=== PATIENT | female | born 1945 | race Caucasian/White ===

== ENCOUNTER → 2020-06-01 08:48 | Outpatient (CLI) | payer MEDICARE, OTHER, SELFPAY ==
--- NOTE | 2020-06-01 | DI.RAD.S_ITS ---
PROCEDURE: XR HIP W PEL IF DONE RT 2V INDICATIONS: Hip pain TECHNIQUE: AP pelvis with lateral view(s) of the right hip(s). COMPARISON: None. FINDINGS: Bones: No fracture. Lumbar spondylosis and facet arthropathy. Severe right hip joint degeneration with near mrie-we-qadu appearance. There is mild left hip joint degeneration. Calcification projecting the region of the greater trochanter suggestive of calcific tendinitis. Soft tissues: The visualized bowel gas pattern is normal. No suspicious soft tissue calcifications. IMPRESSION: Severe right hip joint degeneration. Mild left hip osteoarthritis Lower lumbar spondylosis and facet disease. Dictated by: Bert Moy M.D. on 06/01/2020 at 10:36 Approved by: Bert Moy M.D. on 06/01/2020 at 10:37
[2020-06-01 10:37] LABS: Appearance Urine UA CLEAR; Bilirubin Urine UA NEGATIVE (NEGATIVE); Color Urine UA YELLOW; Glucose Urine UA NEGATIVE (Negative); Ketones Urine UA NEGATIVE (NEGATIVE); Leukocyte Esterase Urine UA TRACE (NEGATIVE); Nitrite Urine UA NEGATIVE (Negative); Occult Blood Urine UA 1+ (Negative); Protein Urine UA 1+ (Negative); Specific Gravity Urine UA >=1.030 (1.000-1.035); Urobilinogen Urine UA 0.2 E.U./dL (0.2)
[2020-06-01 10:44] LABS: Bacteria Urine Few (2-10); Culture Indicated Urine Cult Not Indicated; RBC Urine 5-10/HPF (0-5/HPF); Squamous Epithelial Cell Urine 5-10 /HPF (0-5/HPF); WBC Urine 1-5/HPF (0-5/HPF)
[2020-06-01 11:17] LABS: Alanine Aminotransferase 32 IU/L (<35); Albumin 4.4 g/dL (3.5-5.0); Albumin Globulin Ratio 1.4 (1.0-2.8); Alkaline Phosphatase 69 U/L (38-126); Aspartate Aminotransferase 29 IU/L (14-36); BUN Creatinine Ratio 24.6 (6-22); Bilirubin Total 0.5 mg/dL (0.2-1.3); Blood Urea Nitrogen 17 mg/dL (7-17); Calcium 9.6 mg/dL (8.4-10.2); Carbon Dioxide 28 mmol/L (22-32); Chloride 103 mmol/L (98-107); Cholesterol 160 mg/dL (140-199); Creatine Kinase 67 U/L (30-135); Estimated Glomerular Filt Rate > 60.0 mL/min (>60); Globulin 3.2 g/dL (1.7-4.1); Glucose 104 mg/dL (80-110); HDL Cholesterol 66 mg/dL (40-60); HEMOLYSIS < 15 (0-50); LDL Cholesterol Calculated 63 mg/dL (<100); Potassium 4.1 mmol/L (3.4-5.1); Sodium 140 mmol/L (137-145); Total Protein 7.6 g/dL (6.3-8.2); Triglycerides 157 mg/dL (35-150)
[2020-06-01 11:35] LABS: TSH w/ Reflex to FT4 1.83 uIU/mL (0.47-4.68)
[2020-06-02 08:59] LABS: Add Manual Diff / Slide Review NO; Basophils Absolute Auto 0 /uL (0-100); Basophils Percent Auto 0.6 % (0-2); Eosinophils Absolute Auto 100 /uL (0-450); Eosinophils Percent Auto 1.3 % (2-4); Hematocrit 42.1 % (36-46); Hemoglobin 14.2 g/dL (12.0-16.0); Lymphocytes Absolute Auto 2100 /uL (1100-4500); Lymphocytes Percent Auto 29.7 % (25-40); Mean Corpuscular HGB Conc 33.7 % (30-36); Mean Corpuscular Hemoglobin 31.7 PG (26-34); Mean Corpuscular Volume 94.1 fL (80-100); Monocytes Absolute Auto 600 /uL (0-900); Monocytes Percent Auto 8.4 % (3-14); Neutrophils Absolute Auto 4200 /uL (1500-7000); Platelet Count 234 X10^3/uL (150-400); Red Blood Cell Count 4.47 X10^6/uL (4.0-5.2); Red Cell Distribution Width 13.7 % (11.6-14.8)
== END ==
PROVIDERS: Referring Provider Internal Medicine; Visit Provider Internal Medicine
DX: R10.31 Right lower quadrant pain (principal); I10 Essential (primary) hypertension; M25.551 Pain in right hip
CPT/HCPCS: 36415; 73502; 80053; 80061; 81001; 82550; 84443; 85025

== ENCOUNTER 2021-01-02 18:41 | Emergency (ER) | payer MEDICARE, OTHER, SELFPAY ==
[2021-01-02] VITALS (12 sets, daily range): BP systolic 101–208; BP diastolic 56–106; PULSE 87–136; RESP 18–36; TEMP 36.3–36.4; O2SAT 91–99
--- NOTE | 2021-01-02 18:42 | DI.CT.S_ITS ---
PROCEDURE: CT HEAD/BRAIN WO CON INDICATIONS: confusion TECHNIQUE: Noncontrast 4.5 mm thick angled axial sections acquired from the foramen magnum to the vertex, with coronal and sagittal reformats. For radiation dose reduction, the following was used: automated exposure control, adjustment of mA and/or kV according to patient size. COMPARISON: None. FINDINGS: Image quality: Excellent. CSF spaces: Basal cisterns are patent. No extra-axial fluid collections. The ventricles are symmetric in size and shape. Brain: 0.8 x 0.7 x 1.3 centimeter acute parenchymal bleed noted in the anterior-inferior left temporal lobe. Extensive vasogenic edema noted in the left temporal, left occipital and left parietal lobes as well as the left deep white matter. There is mild left uncal herniation. There is mild, approximately 6-7 millimeters of ckzk-xc-madpd midline shift There is intracranial internal carotid artery atherosclerosis. Skull and face: Calvarium and visualized facial bones appear intact, without suspicious lesions. Sinuses: Visualized sinuses and mastoids are clear. IMPRESSION: 1. 0.8 x 0.7 x 1.3 centimeter acute left temporal bleed with extensive associated vasogenic edema suspicious for underlying neoplastic process. Recommend MRI of the brain with and without contrast when clinically feasible. 2. Approximately 6-7 millimeters of jgtj-yc-xygfg subfalcine herniation and mild left uncal herniation. 3. Findings telephoned to Dr. Lopez on January 02, 2021 at 8:35 p.m.. Dictated by: Keisha Abdul MD, PhD on 01/02/2021 at 20:32 Approved by: Keisha Abdul MD, PhD on 01/02/2021 at 20:39
--- NOTE | 2021-01-02 18:45 | ED_ITS ---
HPI - General Adult General Chief complaint: Altered Mental Status Stated complaint: change in mental status Time Seen by Provider: 01/02/21 18:42 History of Present Illness HPI narrative: 75-year-old woman with increasingly agitated behavior, police were called to further assess and medics were then dispatched. She was argumentative, clearly altered with non fluent and tangential speech. There were reports of a fall approximately 3 days ago and apparently behavioral changes started shortly after that fall. On arrival no medical records are available and patient is agitated and uncooperative to the point that she is sedated with ketamine. That was not adequate to move forward with any type of assessment or imaging so an additional 2 mg of Ativan are given. Related Data Home Medications Medication Instructions Recorded Confirmed Unobtainable 01/02/21 01/02/21 Allergies Allergy/AdvReac Type Severity Reaction Status Date / Time No Allergy Information Allergy Verified 01/02/21 20:56 Available Review of Systems Review of Systems ROS Unobtainable: Unobtainable due to mental status/LOC Patient History Social History Smoking Status: Former smoker Exam Narrative Exam Narrative: General: Agitated and combative. Moving all extremities HEENT: Moist mucous membranes, Neck: No JVD, supple Respiratory: Lungs are clear to auscultation, no wheezing no rales no rhonchi. Full and symmetrical air movement Cardiac: 1 sedated, Regular rate and rhythm no murmurs no bruits Abdomen: Soft, obese, nontender, good bowel tones, no flank pain Skin: Warm and dry, no rashes Neurologic: Significantly agitated with some word-finding difficulty and fluency difficulty but otherwise Grossly neurologically intact with no obvious asymmetries or abnormalities Extremities: No trauma, well perfused, chronic lower venous stasis changes Psych: Altered and agitated Initial Vital Signs Initial Vital Signs: Vital Signs Temperature 97.5 F L 01/02/21 18:35 Pulse Rate 108 H 01/02/21 18:35 Respiratory Rate 18 01/02/21 18:35 Blood Pressure 190/99 H 01/02/21 18:35 Pulse Oximetry 99 01/02/21 18:35 Course Orders Ordered: Discontinued Medications Dexamethasone (Dexamethasone 10 Mg/Ml Vial) 10 mg IV NOW ONE Stop: 01/02/21 20:41 Last Admin: 01/02/21 20:57 Dose: 10 mg Documented by: ANGELLA Levetiracetam 1,000 mg/ Sodium (Chloride) 110 mls @ 440 mls/hr IV NOW ONE Stop: 01/02/21 20:45 Last Infusion: 01/02/21 21:23 Dose: 0 mls/hr Documented by: Admin: 01/02/21 20:57 Dose: 440 mls/hr Documented by: ANGELLA Nicardipine HCl 25 mg/ Sodium (Chloride) 250 mls @ 50 mls/hr IV TITRATE JUDD; Protocol Last Titration: 01/02/21 22:08 Dose: 0 mg/hr, 0 mls/hr Documented by: Admin: 01/02/21 22:02 Dose: 5 mg/hr, 50 mls/hr Documented by: ADAN Nicardipine HCl 25 mg/ Sodium (Chloride) 250 mls @ 50 mls/hr IV TITRATE JUDD; Protocol Ketamine HCl (Ketamine 500 Mg/5 Ml Inj) 400 mg IM NOW ONE Stop: 01/02/21 18:46 Last Admin: 01/02/21 18:48 Dose: 400 mg Documented by: RODDY Lorazepam (Lorazepam 2 Mg/Ml Inj) 2 mg IV NOW ONE Stop: 01/02/21 19:52 Last Admin: 01/02/21 19:58 Dose: 2 mg Documented by: ADAN Vital Signs Vital signs: Vital Signs - 8 hr 01/02/21 21:15 01/02/21 21:30 01/02/21 21:45 Temperature Pulse Rate 88 91 H 90 Respiratory Rate 21 20 20 Blood Pressure 121/67 101/56 L 102/58 L Pulse Oximetry 93 92 91 01/02/21 22:00 Temperature 97.3 F L Pulse Rate 87 Respiratory Rate 19 Blood Pressure 103/56 L Pulse Oximetry 91 Medical Decision Making Medical Records Medical records reviewed: Yes I reviewed the patient's medical records. Lab Data Lab results reviewed: Yes I reviewed the patient's lab results. Result diagrams: 01/02/21 19:11 01/02/21 20:09 Labs: Lab Results 01/02/21 01/02/21 01/02/21 Range/Units 19:11 19:11 20:09 WBC 10.8 (4.5-11.0) X10^3/uL RBC 4.63 (4.0-5.2) X10^6/uL Hgb 15.0 (12.0-16.0) g/dL Hct 43.5 (36-46) % MCV 94.0 (80-100) fL MCH 32.4 (26-34) PG MCHC 34.5 (30-36) % RDW 13.5 (11.6-14.8) % Plt Count 281 (150-400) X10^3/uL Neut % (Auto) 54.3 (50-75) % Lymph % (Auto) 35.5 (25-40) % [place] % (Auto) 8.4 (3-14) % Eos % (Auto) 1.2 L (2-4) % Baso % (Auto) 0.6 (0-2) % Neut # (Auto) 5900 (2278-6558) /uL Lymph # (Auto) 3800 (8356-3827) /uL [place] # (Auto) 900 (0-900) /uL Eos # (Auto) 100 (0-450) /uL Baso # (Auto) 100 (0-100) /uL PT (10.1-12.7) SECONDS INR (0.9-1.3) APTT (26.4-36.2) SECONDS Sodium 142 (137-145) mmol/L Potassium 4.0 (3.4-5.1) mmol/L Chloride 106 (98-107) mmol/L Carbon Dioxide 23 (22-32) mmol/L BUN 15 (7-17) mg/dL Creatinine 0.70 (0.52-1.04) mg/dL Estimated GFR > 60.0 (>60) mL/min BUN/Creatinine Ratio 21.4 (6-22) Glucose 100 (80-110) mg/dL Lactate (0.7-2.1) mmol/L Calcium 9.5 (8.4-10.2) mg/dL Magnesium 2.5 H (1.6-2.3) mg/dL Total Bilirubin 0.2 (0.2-1.3) mg/dL AST 30 (14-36) IU/L ALT 30 (<35) IU/L Alkaline Phosphatase 71 (38-126) U/L Troponin I < 0.012 (0.01-0.034) ng/mL Total Protein 8.0 (6.3-8.2) g/dL Albumin 4.4 (3.5-5.0) g/dL Globulin 3.6 (1.7-4.1) g/dL Albumin/Globulin Ratio 1.2 (1.0-2.8) Lipase 73 (23-300) U/L SARS-CoV-2 (PCR) Negative (Negative) 01/02/21 01/02/21 Range/Units 20:09 20:09 WBC (4.5-11.0) X10^3/uL RBC (4.0-5.2) X10^6/uL Hgb (12.0-16.0) g/dL Hct (36-46) % MCV (80-100) fL MCH (26-34) PG MCHC (30-36) % RDW (11.6-14.8) % Plt Count (150-400) X10^3/uL Neut % (Auto) (50-75) % Lymph % (Auto) (25-40) % [place] % (Auto) (3-14) % Eos % (Auto) (2-4) % Baso % (Auto) (0-2) % Neut # (Auto) (5784-3007) /uL Lymph # (Auto) (0153-1398) /uL [place] # (Auto) (0-900) /uL Eos # (Auto) (0-450) /uL Baso # (Auto) (0-100) /uL PT 11.5 (10.1-12.7) SECONDS INR 1.0 (0.9-1.3) APTT 28 (26.4-36.2) SECONDS Sodium (137-145) mmol/L Potassium (3.4-5.1) mmol/L Chloride (98-107) mmol/L Carbon Dioxide (22-32) mmol/L BUN (7-17) mg/dL Creatinine (0.52-1.04) mg/dL Estimated GFR (>60) mL/min BUN/Creatinine Ratio (6-22) Glucose (80-110) mg/dL Lactate 2.9 H (0.7-2.1) mmol/L Calcium (8.4-10.2) mg/dL Magnesium (1.6-2.3) mg/dL Total Bilirubin (0.2-1.3) mg/dL AST (14-36) IU/L ALT (<35) IU/L Alkaline Phosphatase (38-126) U/L Troponin I (0.01-0.034) ng/mL Total Protein (6.3-8.2) g/dL Albumin (3.5-5.0) g/dL Globulin (1.7-4.1) g/dL Albumin/Globulin Ratio (1.0-2.8) Lipase (23-300) U/L SARS-CoV-2 (PCR) (Negative) Imaging Data CT scan - head: Radiologist's Impression: FINDINGS: Image quality: Excellent. CSF spaces: Basal cisterns are patent. No extra-axial fluid collections. The ventricles are symmetric in size and shape. Brain: 0.8 x 0.7 x 1.3 centimeter acute parenchymal bleed noted in the anterior-inferior left temporal lobe. Extensive vasogenic edema noted in the left temporal, left occipital and left parietal lobes as well as the left deep white matter. There is mild left uncal herniation. There is mild, approximately 6-7 millimeters of zjow-bi-mymjf midline shift There is intracranial internal carotid artery atherosclerosis. Skull and face: Calvarium and visualized facial bones appear intact, without suspicious lesions. Sinuses: Visualized sinuses and mastoids are clear. IMPRESSION: 1. 0.8 x 0.7 x 1.3 centimeter acute left temporal bleed with extensive associated vasogenic edema suspicious for underlying neoplastic process. Recommend MRI of the brain with and without contrast when clinically feasible. 2. Approximately 6-7 millimeters of sous-jf-rpnda subfalcine herniation and mild left uncal herniation. 3. Findings telephoned to Dr. Lopez on January 02, 2021 at 8:35 p.m.. Dictated by: Keisha Abdul MD, PhD on 01/02/2021 at 20:32 CT angiogram head and neck: Radiologist's Impression: FINDINGS: Image quality: Excellent. BRAIN: CSF spaces: Ventricles are normal in size and shape. Basal cisterns are patent. No extra-axial fluid collections. Brain: No midline shift. Small anterior left temporal bleed stable compared to prior CT scan of the head. Extensive vasogenic edema stable compared to prior CT scan. Toqx-zl-nrqjt subfalcine herniation stable. Mild left uncal herniation is stable. 4.1 x 2.8 by 4.3 centimeter peripherally enhancing mass noted in the anterior left temporal lobe highly suspicious for primary metastatic malignancy. Skull and face: Calvarium and facial bones appear intact, without suspicious lesions. Orbits appear normal. Sinuses: Sinuses and mastoids are clear. HEAD CT ANGIOGRAPHY: Anterior circulation: Intracranial internal carotid arteries are normal in flow. Atherosclerotic calcifications noted in the cavernous and clinoid segments of the internal carotid arteries bilaterally which causes mild narrowing of the vesse ls. The flow within the paired anterior cerebral arteries is normal and symmetric. The flow within the middle cerebral arteries is normal and symmetric. The anterior communicating artery is seen. No aneurysms are seen. Posterior circulation: Visualized portions of the vertebral arteries demo nstrate normal caliber, and join to form a normal appearing basilar artery. Flow within the posterior cerebral arteries is normal and symmetric. No aneurysms are seen. Dural sinuses demonstrate normal postcontrast enhancement. NECK CT ANGIOGRAPHY: Carotid system: The great vessels demonstrate a conventional anatomy as they arise from the aortic arch. The origins of the common carotid arteries appear patent. The common carotid arteries demonstrate normal caliber and courses. Atherosclerotic calcifications noted in the origins of the internal carotid arteries bilaterally which causes less than 50% stenosis of the vessels. The internal carotid arteries follow medial course project into the retropharyngeal space. Posterior circulation: The origins of the vertebral arteries both appear widely patent. The more superior extracranial portions of both vertebral arteries also de monstrate normal courses and calibers. They join to form a normal appearing basilar artery. Soft tissues: Visualized neck soft tissues demonstrate no suspicious abnormalities. Bones: No suspicious bony lesions. Visualized cervical spine appears normally aligned. IMPRESSION: 1. 4.1 x 2.8 x 4.3 centimeter peripherally enhancing mass in the left temporal lobe highly suspicious for primary or metastatic neoplasm. 2. Small anterior left temporal acute parenchymal bleed stable compared to prior CT scan of the head. 3. Xtwn-ka-vpgfd subfalcine herniation and mild left uncal herniation stable. 4. No large vessel occlusion, hemodynamically significant vascular stenosis, vas cular dissection or aneurysm. Any quantitative measurements of stenosis were performed using NASCET criteria. Dictated by: Keisha Abdul MD, PhD on 01/02/2021 at 20:42 MDM Narrative Medical decision making narrative: 75-year-old woman brought in by police after neighbors were concerned with altered mental status and report a fall 3 days ago. Patient did not want to be seen. Once in the emergency department to agitated for any further review. She was sedated with 4 per kilos of ketamine and an additional 2 mg of IV Ativan. Imaging, IV and lab work were obtained. Lab work is unremarkable and I suspect the slightly elevated lactic acid is from her agitation and struggling getting her to the emergency department in the 1st place. There is no other sign of infection. CT of the head is significantly concerning for a 0.8 x 0.7 x 1.3 cm acute left temporal bleed with extensive associated vasogenic edema suspicious for underlying neoplastic process. She also has a 6 7 mm left to right subfalcine herniation/midline shift and mild left uncal herniation When results of CT became available, patient is re-examined. She is still pleasantly sedated however she is starting to have bilateral upper extremity tremors concerning for seizure activity. 1g of Keppra is given IV. She is also given 10 mg of IV Decadron for the vasogenic edema. Images are electronically pushed to [facility] and phone call to see if beds are available for transport. Will contact the neighbors who initially made the phone call and see if there is other family or medical history that might be available. ANSHU Miller [phone] friend in [place] - message left 9pm 01/02 neighbor Ramana Bautista [phone] (has dog) [facility], Neurosurg Dr Dias recommends Neuro ICU admit. [address] Zohreh Severino, Neuro manager data center. Accepts. Recommends systolic blood pressure goal under 140. Will begin nicardipine. Will add coags to blood available in lab. Critical Care Time Critical Care Time Critical Care Time: Yes Total Critical Care Time: 33 Attestation: Critical care time is separate from other billable procedures. This critical care time includes consultation with family and other consulting doctors, review of records, and interpretation of data from labs, EKGs and imaging as well as managements of acute neurologic emergency with intracranial hemorrhage and intracranial edema at risk for herniation. Discharge Plan Departure Patient Disposition: [facility] Clinical Impression: Intraparenchymal hemorrhage of brain, Vasogenic cerebral edema, Observed seizure-like activity, Brain neoplasm Altered mental status Qualifiers: Altered mental status type: disorientation Qualified Code(s): R41.0 - Disorientation, unspecified Prescriptions: No Action Unobtainable RF: 0 Referrals: Parris Frye MD [Primary Care Provider] -
[2021-01-02] MEDS: KETAMINE 500 MG/5 ML INJ 400 MG IM (18:48)
--- NOTE | 2021-01-02 19:22 | PC.NURSE ---
Pt arrived via EMS [facility] with secretary of police support. Pt was found at home by her neighbor with altered mental status. Slurred, disorganized, and flight of idea speech. Pt was yelling profanities at staff and trying to hit and grab RN. Pt grabbing at handrails and trying to get up and leave. Pt was a safety risk to herself and others. Dr Lopez at bedside and order for Ketamine 400mg IM. Given per OCT. Pt calmed. Placed on cardiac monitoring. SPO2 monitoring. IV placed and labs drawn. placed on pt safety monitoring. H/o of fall several days ago. unknown if pt had medical attention at that time. noted to have healing laceration on R lower lip. Unk if pt on blood thinners or if there was LOC at the time of the fall. NAD and resting in bed on stretcher at this time. RR even and unlabored.
--- NOTE | 2021-01-02 19:29 | PC.NURSE ---
calm due to chemical restraint
[2021-01-02 19:33] LABS: Add Manual Diff / Slide Review NO; Basophils Absolute Auto 100 /uL (0-100); Basophils Percent Auto 0.6 % (0-2); Eosinophils Absolute Auto 100 /uL (0-450); Eosinophils Percent Auto 1.2 % (2-4); Hematocrit 43.5 % (36-46); Lymphocytes Absolute Auto 3800 /uL (1100-4500); Lymphocytes Percent Auto 35.5 % (25-40); Mean Corpuscular HGB Conc 34.5 % (30-36); Mean Corpuscular Hemoglobin 32.4 PG (26-34); Monocytes Absolute Auto 900 /uL (0-900); Monocytes Percent Auto 8.4 % (3-14); Neutrophils Absolute Auto 5900 /uL (1500-7000); Neutrophils Percent Auto 54.3 % (50-75); Platelet Count 281 X10^3/uL (150-400); Red Blood Cell Count 4.63 X10^6/uL (4.0-5.2); Red Cell Distribution Width 13.5 % (11.6-14.8); White Blood Cell Count 10.8 X10^3/uL (4.5-11.0)
--- NOTE | 2021-01-02 19:51 | DI.CT.S_ITS ---
PROCEDURE: CT ANGIO HEAD AND NECK INDICATIONS: agitation, ? stroke TECHNIQUE: After the administration of intravenous contrast, 1 mm thick sections acquired from the aortic arch through the [place]. Post-contrast 4.5 mm thick sections then re-acquired from the foramen magnum to the vertex. 3-dimensional qotpzch-rkkeffcmw-ynzppgsouo (MIP) and/or volume rendering reformats were acquired of the central intracranial vasculature and neck separately. COMPARISON: [facility], CT, CT HEAD/BRAIN WO CON, 01/02/2021, 20:17. FINDINGS: Image quality: Excellent. BRAIN: CSF spaces: Ventricles are normal in size and shape. Basal cisterns are patent. No extra-axial fluid collections. Brain: No midline shift. Small anterior left temporal bleed stable compared to prior CT scan of the head. Extensive vasogenic edema stable compared to prior CT scan. Eijp-gx-myakk subfalcine herniation stable. Mild left uncal herniation is stable. 4.1 x 2.8 by 4.3 centimeter peripherally enhancing mass noted in the anterior left temporal lobe highly suspicious for primary metastatic malignancy. Skull and face: Calvarium and facial bones appear intact, without suspicious lesions. Orbits appear normal. Sinuses: Sinuses and mastoids are clear. HEAD CT ANGIOGRAPHY: Anterior circulation: Intracranial internal carotid arteries are normal in flow. Atherosclerotic calcifications noted in the cavernous and clinoid segments of the internal carotid arteries bilaterally which causes mild narrowing of the vessels. The flow within the paired anterior cerebral arteries is normal and symmetric. The flow within the middle cerebral arteries is normal and symmetric. The anterior communicating artery is seen. No aneurysms are seen. Posterior circulation: Visualized portions of the vertebral arteries demonstrate normal caliber, and join to form a normal appearing basilar artery. Flow within the posterior cerebral arteries is normal and symmetric. No aneurysms are seen. Dural sinuses demonstrate normal postcontrast enhancement. NECK CT ANGIOGRAPHY: Carotid system: The great vessels demonstrate a conventional anatomy as they arise from the aortic arch. The origins of the common carotid arteries appear patent. The common carotid arteries demonstrate normal caliber and courses. Atherosclerotic calcifications noted in the origins of the internal carotid arteries bilaterally which causes less than 50% stenosis of the vessels. The internal carotid arteries follow medial course project into the retropharyngeal space. Posterior circulation: The origins of the vertebral arteries both appear widely patent. The more superior extracranial portions of both vertebral arteries also demonstrate normal courses and calibers. They join to form a normal appearing basilar artery. Soft tissues: Visualized neck soft tissues demonstrate no suspicious abnormalities. Bones: No suspicious bony lesions. Visualized cervical spine appears normally aligned. IMPRESSION: 1. 4.1 x 2.8 x 4.3 centimeter peripherally enhancing mass in the left temporal lobe highly suspicious for primary or metastatic neoplasm. 2. Small anterior left temporal acute parenchymal bleed stable compared to prior CT scan of the head. 3. Fqno-gr-yphva subfalcine herniation and mild left uncal herniation stable. 4. No large vessel occlusion, hemodynamically significant vascular stenosis, vascular dissection or aneurysm. Any quantitative measurements of stenosis were performed using NASCET criteria. Dictated by: Keisha Abdul MD, PhD on 01/02/2021 at 20:42 Approved by: Keisha Abdul MD, PhD on 01/02/2021 at 20:50
--- NOTE | 2021-01-02 19:57 | PC.NURSE ---
pt went to CT but exam was unable to be completed due to pt's activity
[2021-01-02] MEDS: LORazepam 2 MG/ML INJ IV (19:58)
--- NOTE | 2021-01-02 20:24 | PC.NURSE ---
pt went to ct and this time they were able to get the scans
[2021-01-02 20:31] LABS: Alanine Aminotransferase 30 IU/L (<35); Albumin 4.4 g/dL (3.5-5.0); Albumin Globulin Ratio 1.2 (1.0-2.8); Alkaline Phosphatase 71 U/L (38-126); Aspartate Aminotransferase 30 IU/L (14-36); BUN Creatinine Ratio 21.4 (6-22); Bilirubin Total 0.2 mg/dL (0.2-1.3); Blood Urea Nitrogen 15 mg/dL (7-17); Calcium 9.5 mg/dL (8.4-10.2); Carbon Dioxide 23 mmol/L (22-32); Chloride 106 mmol/L (98-107); Estimated Glomerular Filt Rate > 60.0 mL/min (>60); Globulin 3.6 g/dL (1.7-4.1); Glucose 100 mg/dL (80-110); HEMOLYSIS < 15 (0-50); Lipase 73 U/L (23-300); Magnesium 2.5 mg/dL (1.6-2.3); Sodium 142 mmol/L (137-145)
[2021-01-02 20:32] LABS: Lactate (Lactic Acid) 2.9 mmol/L (0.7-2.1)
[2021-01-02 20:43] LABS: Troponin I < 0.012 ng/mL (0.01-0.034)
[2021-01-02] MEDS: DEXAMETHASONE 10 MG/ML VIAL IV (20:57)
[2021-01-02] MEDS: levETIRAcetam 1,000 MG in SODIUM CHLORIDE 0.9% 100 ML 440 ML IV (20:57)
[2021-01-02 21:32] LABS: COVID19 - ADMIT (NP swab/PCR) Negative (Negative)
[2021-01-02 21:52] LABS: Prothrombin Time 11.5 SECONDS (10.1-12.7)
[2021-01-02 21:54] LABS: PTT Partial Thromboplastin Tim 28 SECONDS (26.4-36.2)
[2021-01-02] MEDS: NICARDIPINE 25 MG in SODIUM CHLORIDE 0.9% 240 ML 50 ML IV (22:02)
--- NOTE | 2021-01-02 22:05 | PC.NURSE ---
Patient prepped to go via [facility]; nicardipine drip prepared but not started d/t acceptable SBP (<140). Belongings with patient.
[2021-01-02 22:13] LABS: Reflexed Lactate in 2 Hours Y
--- NOTE | 2021-01-02 22:32 | PC.NURSE ---
Report given to JOSE ; patient set to transport to [facility].
[2021-01-03 14:30] LABS: Enterococcus species Not Detected (Not Detect); Listeria monocytogenes Not Detected (Not Detect)
[2021-01-03 14:31] LABS: Acinetobacter baumannii Not Detected (Not Detect); Candida albicans Not Detected (Not Detect); Candida glabrata Not Detected (Not Detect); Candida krusei Not Detected (Not Detect); Candida parapsilosis Not Detected (Not Detect); Candida tropicalis Not Detected (Not Detect); E. coli Not Detected (Not Detect); Enterobacter cloacae complex Not Detected (Not Detect); Enterobacteriaceae species Not Detected (Not Detect); Haemophilus influenzae Not Detected (Not Detect); KPC (carbapenem-resist gene) Not Detected (Not Detect); Methicillin-resistant gene Detected (Not Detect); Neisseria meningitidis Not Detected (Not Detect); Proteus species Not Detected (Not Detect); Pseudomonas aeruginosa Not Detected (Not Detect); Serratia marcescens Not Detected (Not Detect); Streptococcus agalactiae (Gr B Not Detected (Not Detect); Streptococcus pneumonia Not Detected (Not Detect); Streptococcus pyogenes (Gr A) Not Detected (Not Detect); Streptococcus species Not Detected (Not Detect)
[2021-01-03 14:32] LABS: Staphylococcus species Detected (Not Detect)
--- NOTE | 2021-04-16 14:10 | ED_ITS ---
HPI - Altered Mental Status General Chief Complaint: Altered Mental Status Stated Complaint: change in mental status Time Seen by Provider: 01/02/21 18:42 Source: EMS Mode of arrival: EMS Limitations: no limitations Related Data Home Medications Medication Instructions Recorded Confirmed apixaban 5 mg tablet (Eliquis) 5 mg PO BID 04/16/21 famotidine 20 mg tablet 20 mg PO BID 04/16/21 levetiracetam 750 mg 750 mg PO DAILY 04/16/21 tablet,extended release 24 hr metoprolol succinate 100 mg 100 mg PO DAILY 04/16/21 tablet,extended release 24 hr olanzapine 2.5 mg tablet 2.5 mg PO TID 04/16/21 Allergies Allergy/AdvReac Type Severity Reaction Status Date / Time No Allergy Information Allergy Verified 01/03/21 07:59 Available Patient History Medical History (Updated 04/16/21 @ 18:16 by Matti Haas DO) Atrial fibrillation Glioblastoma Surgical History H/O craniotomy Social History (System 01/03/21 @ 07:59 by Sharron Vazquez) household members: none Smoking Status: Former smoker Smoking Status: Former smoker alcohol intake frequency: 0-2 drinks per day Substance Use Type: does not use Exam Initial Vital Signs Initial Vital Signs: Vital Signs Temperature 97.5 F L 01/02/21 18:35 Pulse Rate 108 H 01/02/21 18:35 Respiratory Rate 18 01/02/21 18:35 Blood Pressure 190/99 H 01/02/21 18:35 Pulse Oximetry 99 01/02/21 18:35 Course Orders Ordered: Discontinued Medications Dexamethasone (Dexamethasone 10 Mg/Ml Vial) 10 mg IV NOW ONE Stop: 01/02/21 20:41 Last Admin: 01/02/21 20:57 Dose: 10 mg Documented by: ANGELLA Hydromorphone HCl (Hydromorphone 0.5 Mg Inj) 0.5 mg IV NOW ONE Stop: 04/16/21 14:03 Levetiracetam 1,000 mg/ Sodium (Chloride) 110 mls @ 440 mls/hr IV NOW ONE Stop: 01/02/21 20:45 Last Infusion: 01/02/21 21:23 Dose: 0 mls/hr Documented by: Admin: 01/02/21 20:57 Dose: 440 mls/hr Documented by: ANGELLA Nicardipine HCl 25 mg/ Sodium (Chloride) 250 mls @ 50 mls/hr IV TITRATE JUDD; Protocol Last Titration: 01/02/21 22:08 Dose: 0 mg/hr, 0 mls/hr Documented by: Admin: 01/02/21 22:02 Dose: 5 mg/hr, 50 mls/hr Documented by: ADAN Nicardipine HCl 25 mg/ Sodium (Chloride) 250 mls @ 50 mls/hr IV TITRATE JUDD; Protocol Ketamine HCl (Ketamine 500 Mg/5 Ml Inj) 400 mg IM NOW ONE Stop: 01/02/21 18:46 Last Admin: 01/02/21 18:48 Dose: 400 mg Documented by: RODDY Lorazepam (Lorazepam 2 Mg/Ml Inj) 2 mg IV NOW ONE Stop: 01/02/21 19:52 Last Admin: 01/02/21 19:58 Dose: 2 mg Documented by: ADAN Metoprolol Tartrate (Metoprolol Tartrate 5 Mg/5 Ml Inj) 5 mg IV NOW ONE Stop: 04/16/21 14:02 MDM - Altered Mental Status Lab Data Result diagrams: 01/02/21 19:11 01/02/21 20:09 Labs: Lab Results 01/02/21 01/02/21 01/02/21 Range/Units 19:11 19:11 19:30 WBC 10.8 (4.5-11.0) X10^3/uL RBC 4.63 (4.0-5.2) X10^6/uL Hgb 15.0 (12.0-16.0) g/dL Hct 43.5 (36-46) % MCV 94.0 (80-100) fL MCH 32.4 (26-34) PG MCHC 34.5 (30-36) % RDW 13.5 (11.6-14.8) % Plt Count 281 (150-400) X10^3/uL Neut % (Auto) 54.3 (50-75) % Lymph % (Auto) 35.5 (25-40) % Kimble % (Auto) 8.4 (3-14) % Eos % (Auto) 1.2 L (2-4) % Baso % (Auto) 0.6 (0-2) % Neut # (Auto) 5900 (7854-1992) /uL Lymph # (Auto) 3800 (1026-7624) /uL Kimble # (Auto) 900 (0-900) /uL Eos # (Auto) 100 (0-450) /uL Baso # (Auto) 100 (0-100) /uL PT (10.1-12.7) SECONDS INR (0.9-1.3) APTT (26.4-36.2) SECONDS Sodium (137-145) mmol/L Potassium (3.4-5.1) mmol/L Chloride (98-107) mmol/L Carbon Dioxide (22-32) mmol/L BUN (7-17) mg/dL Creatinine (0.52-1.04) mg/dL Estimated GFR (>60) mL/min BUN/Creatinine Ratio (6-22) Glucose (80-110) mg/dL Lactate (0.7-2.1) mmol/L Calcium (8.4-10.2) mg/dL Magnesium (1.6-2.3) mg/dL Total Bilirubin (0.2-1.3) mg/dL AST (14-36) IU/L ALT (<35) IU/L Alkaline Phosphatase (38-126) U/L Troponin I (0.01-0.034) ng/mL Total Protein (6.3-8.2) g/dL Albumin (3.5-5.0) g/dL Globulin (1.7-4.1) g/dL Albumin/Globulin Ratio (1.0-2.8) Lipase (23-300) U/L A. baumannii (PCR) Not detected (Not Detect) Ofelia albicans (PCR) Not detected (Not Detect) C. glabrata (PCR) Not detected (Not Detect) C. krusei (PCR) Not detected (Not Detect) C. parapsilosis (PCR) Not detected (Not Detect) C. tropicalis (PCR) Not detected (Not Detect) SARS-CoV-2 (PCR) Negative (Negative) Enterobacteriac sp PCR Not detected (Not Detect) E. cloacae complex PCR Not detected (Not Detect) Enterococcus sp PCR Not detected (Not Detect) E. coli (PCR) Not detected (Not Detect) H. influenzae (PCR) Not detected (Not Detect) Klebsiella oxytoca PCR Not detected (Not Detect) Klebsiella pneumoniae Not detected (Not Detect) List. monocytogenes PCR Not detected (Not Detect) N. meningitidis (PCR) Not detected (Not Detect) Proteus species (PCR) Not detected (Not Detect) Serratia marcescens PCR Not detected (Not Detect) Staphylococcus sp PCR Detected H (Not Detect) Staph aureus (PCR) Not detected (Not Detect) mecA-Methicil Res Gene Detected H (Not Detect) Streptococcus sp PCR Not detected (Not Detect) Group A Strep (PCR) Not detected (Not Detect) Strep agalactiae (PCR) Not detected (Not Detect) Strep pneumoniae (PCR) Not detected (Not Detect) P. aeruginosa (PCR) Not detected (Not Detect) Kavitha/B-Vanco Res Genes Not Reportable KPC-Carbap Res Gene PCR Not detected (Not Detect) 01/02/21 01/02/21 01/02/21 Range/Units 20:09 20:09 20:09 WBC (4.5-11.0) X10^3/uL RBC (4.0-5.2) X10^6/uL Hgb (12.0-16.0) g/dL Hct (36-46) % MCV (80-100) fL MCH (26-34) PG MCHC (30-36) % RDW (11.6-14.8) % Plt Count (150-400) X10^3/uL Neut % (Auto) (50-75) % Lymph % (Auto) (25-40) % [place] % (Auto) (3-14) % Eos % (Auto) (2-4) % Baso % (Auto) (0-2) % Neut # (Auto) (0888-5629) /uL Lymph # (Auto) (6586-7746) /uL Kimble # (Auto) (0-900) /uL Eos # (Auto) (0-450) /uL Baso # (Auto) (0-100) /uL PT 11.5 (10.1-12.7) SECONDS INR 1.0 (0.9-1.3) APTT 28 (26.4-36.2) SECONDS Sodium 142 (137-145) mmol/L Potassium 4.0 (3.4-5.1) mmol/L Chloride 106 (98-107) mmol/L Carbon Dioxide 23 (22-32) mmol/L BUN 15 (7-17) mg/dL Creatinine 0.70 (0.52-1.04) mg/dL Estimated GFR > 60.0 (>60) mL/min BUN/Creatinine Ratio 21.4 (6-22) Glucose 100 (80-110) mg/dL Lactate 2.9 H (0.7-2.1) mmol/L Calcium 9.5 (8.4-10.2) mg/dL Magnesium 2.5 H (1.6-2.3) mg/dL Total Bilirubin 0.2 (0.2-1.3) mg/dL AST 30 (14-36) IU/L ALT 30 (<35) IU/L Alkaline Phosphatase 71 (38-126) U/L Troponin I < 0.012 (0.01-0.034) ng/mL Total Protein 8.0 (6.3-8.2) g/dL Albumin 4.4 (3.5-5.0) g/dL Globulin 3.6 (1.7-4.1) g/dL Albumin/Globulin Ratio 1.2 (1.0-2.8) Lipase 73 (23-300) U/L A. baumannii (PCR) (Not Detect) Ofelia albicans (PCR) (Not Detect) C. glabrata (PCR) (Not Detect) C. krusei (PCR) (Not Detect) C. parapsilosis (PCR) (Not Detect) C. tropicalis (PCR) (Not Detect) SARS-CoV-2 (PCR) (Negative) Enterobacteriac sp PCR (Not Detect) E. cloacae complex PCR (Not Detect) Enterococcus sp PCR (Not Detect) E. coli (PCR) (Not Detect) H. influenzae (PCR) (Not Detect) Klebsiella oxytoca PCR (Not Detect) Klebsiella pneumoniae (Not Detect) List. monocytogenes PCR (Not Detect) N. meningitidis (PCR) (Not Detect) Proteus species (PCR) (Not Detect) Serratia marcescens PCR (Not Detect) Staphylococcus sp PCR (Not Detect) Staph aureus (PCR) (Not Detect) mecA-Methicil Res Gene (Not Detect) Streptococcus sp PCR (Not Detect) Group A Strep (PCR) (Not Detect) Strep agalactiae (PCR) (Not Detect) Strep pneumoniae (PCR) (Not Detect) P. aeruginosa (PCR) (Not Detect) Kavitha/B-Vanco Res Genes KPC-Carbap Res Gene PCR (Not Detect) Discharge Plan Departure Patient Disposition: [facility] Clinical Impression: Intraparenchymal hemorrhage of brain, Altered mental status, Vasogenic cerebral edema, Observed seizure-like activity, Brain neoplasm Prescriptions: No Action metoprolol succinate 100 mg tablet extended release 24 hr 100 mg PO DAILY RF: 0 olanzapine 2.5 mg tablet 2.5 mg PO TID RF: 0 famotidine 20 mg tablet 20 mg PO BID RF: 0 levetiracetam 750 mg tablet extended release 24 hr 750 mg PO DAILY RF: 0 Eliquis 5 mg tablet 5 mg PO BID RF: 0 Referrals: Parris Frye MD [Primary Care Provider] -
== END 2021-01-02 22:46 | disposition short-term general hospital (02) ==
PROVIDERS: Emergency Provider Emergency Medicine; PCP Internal Medicine
DX: I61.9 Nontraumatic intracerebral hemorrhage, unspecified (principal); G93.6 Cerebral edema; D49.6 Neoplasm of unspecified behavior of brain; R56.9 Unspecified convulsions; R41.0 Disorientation, unspecified; Z20.822 Contact with and (suspected) exposure to COVID-19
CPT/HCPCS: 36415; 70450; 70496; 70498; 80053; 83605; 83690; 83735; 84484; 85025; 85610; 85730; 87040; 87150; 87186; 87205; 87635; 96365; 96375; 99285; 99291; C9803; G0390; J1100; J1953; J2060

== ENCOUNTER 2021-04-16 12:39 | Inpatient (IN) | payer MEDICARE, OTHER, SELFPAY ==
[2021-04-16] VITALS (17 sets, daily range): BP systolic 107–154; BP diastolic 60–90; PULSE 84–173; RESP 16–31; TEMP 35.6–37.4; O2SAT 81–97; BMI 33.6
--- NOTE | 2021-04-16 12:40 | DI.CT.S_ITS ---
PROCEDURE: CT HEAD/BRAIN WO CON INDICATIONS: found down TECHNIQUE: Noncontrast 4.5 mm thick angled axial sections acquired from the foramen magnum to the vertex, with coronal and sagittal reformats. For radiation dose reduction, the following was used: automated exposure control, adjustment of mA and/or kV according to patient size. COMPARISON: [facility], CT, CT CERVICAL SPINE WO CON, 04/16/2021, 12:57. [facility], CR, XR HIP W PEL IF DONE RT 2V, 04/16/2021, 12:45. [facility], CR, XR CHEST 1V, 04/16/2021, 12:45. FINDINGS: Image quality: Excellent. CSF spaces: Basal cisterns are patent. No extra-axial fluid collections. There is prominent narrowing of the left lateral ventricle. Brain: Irregular density and mass effect can be seen involving the left frontal temporal region, with associated mass effect, with 5 mm midline shift. Within this region, there are areas of hyperdensity seen, as on series 2, image 13, which are suspicious for acute hemorrhage. There is cerebral volume loss for age, with resultant ventricular and sulcal prominence. There are periventricular and deep white matter chronic small vessel ischemic changes. There is intracranial internal carotid artery atherosclerosis. Skull and face: There is a low-density fluid collection seen along the lateral aspect of the right calvarium, without an underlying fracture. Remote left craniotomy change can be seen. Calvarium and visualized facial bones appear intact, without suspicious lesions. Incidental note is made of hyperostosis frontalis. This is not considered to be pathologic in a woman of this age. Sinuses: Visualized sinuses and mastoids are clear. IMPRESSION: Within the LEFT frontal temporal region, there is irregular density seen, which is largely attributed to underlying mass with edema. However, there are areas of hyperdensity seen, which are attributed to acute hemorrhage. Associated mass effect with 5 mm midline shift can be seen. There is prominent narrowing of the LEFT lateral ventricle. LEFT-sided craniotomy changes are seen. Please correlate with known patient history and pathologic results. Apparent chronic scalp hematoma seen on the RIGHT. Note: Dr. Rutherford was not available to discuss this case at the time of this dictation. Critical finding of acute intracranial hemorrhage relayed to Dr. Rutherford via ER staff, Juan David, at 12:42 p.m. [place] time on April 16, 2021. Dr. Rutherford will call back if there are any questions. Dictated by: Fausto Valera M.D. on 04/16/2021 at 12:36 Approved by: Fausto Valera M.D. on 04/16/2021 at 12:44
--- NOTE | 2021-04-16 12:40 | DI.CT.S_ITS ---
PROCEDURE: CT CERVICAL SPINE WO CON INDICATIONS: fall TECHNIQUE: Noncontrast 3 mm thick sections acquired from the skull base to the T4 level. Sagittal and coronal reformats were then constructed. For radiation dose reduction, the following was used: automated exposure control, adjustment of mA and/or kV according to patient size. COMPARISON: [facility], CT, CT HEAD/BRAIN WO CON, 04/16/2021, 12:57. [facility], CR, XR HIP W PEL IF DONE RT 2V, 04/16/2021, 12:45. [facility], CR, XR CHEST 1V, 04/16/2021, 12:45. FINDINGS: Image quality: This examination is somewhat limited by quantum mottle artifact. Bones: No fractures or dislocations. Visualized superior ribs are intact. At the C4-C5 and C5-C6 levels, there is at least moderate disc space narrowing seen. Partially bridging anterior osteophytes are seen C4 through C6. Posteriorly directed endplate osteophytes are seen at C4-C5 and C5-C6. Focal degenerative change is seen involving the C1-C2 interface anteriorly. Milder degenerative changes are seen elsewhere. Soft tissues: Prevertebral soft tissues are normal in thickness. No paravertebral hematomas. No apical pneumothoraces. IMPRESSION: No acute fractures are seen. Degenerative changes are seen, which are worst inferiorly. Dictated by: Fausto Valera M.D. on 04/16/2021 at 12:34 Approved by: Fausto Valera M.D. on 04/16/2021 at 12:35
--- NOTE | 2021-04-16 12:40 | ED_ITS ---
HPI - Altered Mental Status General Chief Complaint: Fall Stated Complaint: GLF Time Seen by Provider: 04/16/21 12:39 History of Present Illness HPI narrative: Patient 75-year-old has a history of atrial fibrillation on anticoagulation is also history of glioblastoma, she was found to have intracranial hemorrhage in December at which point she was [facility]. Lots of discussion about treatment however the patient decided not to have treatment last week. She has 2 DP always both are here at bedside now. Patient was found down this morning. Her neighbor, Yaw BRASHER, texted her last evening did not get a response, and had a welfare check this morning, she was found on the floor. S he is complaining of right hip pain which she apparently has been going on for some time. She has word salad kind of at his baseline. He Related Data Home Medications Medication Instructions Recorded Confirmed apixaban 5 mg tablet (Eliquis) 5 mg PO BID 04/16/21 famotidine 20 mg tablet 20 mg PO BID 04/16/21 levetiracetam 750 mg 750 mg PO DAILY 04/16/21 tablet,extended release 24 hr metoprolol succinate 100 mg 100 mg PO DAILY 04/16/21 tablet,extended release 24 hr olanzapine 2.5 mg tablet 2.5 mg PO TID 04/16/21 Allergies Allergy/AdvReac Type Severity Reaction Status Date / Time No Allergy Information Allergy Verified 01/03/21 07:59 Available Review of Systems Review of Systems ROS Unobtainable: Unobtainable due to medical condition Patient History Medical History (Updated 04/16/21 @ 18:16 by Matti Haas DO) Atrial fibrillation Glioblastoma Surgical History H/O craniotomy Social History (System 01/03/21 @ 07:59 by Sharron Vazquez) household members: none Smoking Status: Former smoker Exam Initial Vital Signs Initial Vital Signs: Vital Signs Temperature 96.1 F L 04/16/21 12:44 Pulse Rate 110 H 04/16/21 12:44 Respiratory Rate 20 04/16/21 12:44 Blood Pressure 134/90 04/16/21 12:44 Pulse Oximetry 95 04/16/21 12:44 GENERAL: Alert 75-year-old female able to find some HEENT: Head atraumatic,EOMI, pupils reactive, face symmetric, dry CARDIOVASCULAR: Tachycardic irregularly irregular ABDOMEN: Soft, nontender. Normoactive bowel sounds all 4 quadrants. No guarding or rebound. EXTREMITIES: Normal range of motion, no clubbing or edema. Neurovascularly intact. Right hip tenderness NEUROLOGICAL: Word salad no facial droop moving all extremities SKIN: Cool extremities, no mottling, no erythema Course Orders Ordered: ED Orders 04/16/21 11:50 Blood Culture Stat COVID19 -Nasal swab/Pre-Proc Stat Complete Blood Count AUTO DIFF Stat Comprehensive Metabolic Panel Stat Lactate (Lactic Acid) Stat NT-proBNP (BNP-Adult 18+) Stat Partial Thromboplastin Time Stat Procalcitonin Stat Prothrombin Time INR Stat Troponin & CK Cardiac Panel Stat 04/16/21 12:40 CT cervical spine wo con Stat CT head/brain wo con Stat XR chest 1V Stat XR hip w pel if done RT 2V Stat 04/16/21 12:41 EKG-12 Lead Stat 04/16/21 14:40 Urinalysis and Microscopic Stat Acetaminophen (Acetaminophen 325 Mg Tablet) 650 mg PO Q6HR PRN PRN Reason: Fever/Mild Pain (1-3) Dexamethasone (Dexamethasone 4 Mg/Ml Vial) 4 mg IV Q6HR JUDD Stop: 04/19/21 00:00 Sodium Chloride (Normal Saline 0.9%) 1,000 mls @ 100 mls/hr IV CONT JUDD Last Admin: 04/16/21 17:02 Dose: 100 mls/hr Documented by: ELISA Levetiracetam 500 mg/ Sodium (Chloride) 105 mls @ 420 mls/hr IV Q12H [facility] Metoprolol Succinate (Metoprolol Er 50 Mg Tablet) 50 mg PO BID JUDD Metoprolol Tartrate (Metoprolol Tartrate 5 Mg/5 Ml Inj) 5 mg IV Q2HR PRN PRN Reason: Heart Rate- High > 130 Ondansetron HCl (Ondansetron 4 Mg Odt) 4 mg PO Q8HR PRN PRN Reason: Nausea And Vomiting Oxycodone HCl (Oxycodone Ir 5 Mg Tablet) 5 mg PO Q6HR PRN PRN Reason: Pain, Moderate (4-6) Discontinued Medications Dexamethasone (Dexamethasone 10 Mg/Ml Vial) 10 mg IV NOW ONE Stop: 04/16/21 18:40 Hydromorphone HCl (Hydromorphone 0.5 Mg Inj) 0.5 mg IV NOW ONE Stop: 04/16/21 14:12 Last Admin: 04/16/21 14:23 Dose: 0.5 mg Documented by: ADAN Sodium Chloride (Normal Saline 0.9%) 1,000 mls @ 1,000 mls/hr IV BOLUS ONE Stop: 04/16/21 14:22 Last Infusion: 04/16/21 14:23 Dose: 0 mls/hr Documented by: Admin: 04/16/21 13:31 Dose: 1,000 mls/hr Documented by: ADAN Metoprolol Tartrate (Metoprolol Tartrate 5 Mg/5 Ml Inj) 5 mg IV NOW ONE Stop: 04/16/21 14:12 Last Admin: 04/16/21 14:23 Dose: 5 mg Documented by: ADAN Vital Signs Vital signs: Vital Signs - 8 hr 04/16/21 12:44 04/16/21 12:52 04/16/21 12:57 Temperature 96.1 F L 96.1 F L Pulse Rate 110 H 167 H 123 H Respiratory Rate 20 20 30 H Blood Pressure 134/90 134/90 Pulse Oximetry 95 95 96 04/16/21 13:00 04/16/21 13:02 04/16/21 13:24 Temperature Pulse Rate 125 H 146 H 173 H Respiratory Rate 30 H 30 H 28 H Blood Pressure 148/79 H 129/79 Pulse Oximetry 96 96 81 L 04/16/21 13:30 04/16/21 13:31 04/16/21 14:00 Temperature Pulse Rate 142 H 118 H 146 H Respiratory Rate 28 H 28 H 31 H Blood Pressure 154/77 H 138/86 Pulse Oximetry 95 97 97 04/16/21 14:30 04/16/21 15:00 04/16/21 15:01 Temperature 98.8 F 99.0 F Pulse Rate 99 H 93 H 90 Respiratory Rate 30 H 23 24 Blood Pressure 154/73 H 116/65 Pulse Oximetry 97 95 96 04/16/21 15:30 04/16/21 16:00 Temperature 99.3 F 99.3 F Pulse Rate 98 H 124 H Respiratory Rate 24 26 H Blood Pressure 125/69 138/76 Pulse Oximetry 93 95 MDM - Altered Mental Status Lab Data Attestation: I reviewed the patient's lab results. Result diagrams: 04/16/21 11:50 04/16/21 11:50 Labs: Lab Results 04/16/21 04/16/21 04/16/21 Range/Units 11:50 11:50 11:50 WBC 14.9 H (4.5-11.0) X10^3/uL RBC 5.94 H (4.0-5.2) X10^6/uL Hgb 17.8 H (12.0-16.0) g/dL Hct 55.1 H (36-46) % MCV 92.8 (80-100) fL MCH 29.9 (26-34) PG MCHC 32.2 (30-36) % RDW 15.0 H (11.6-14.8) % Plt Count 398 (150-400) X10^3/uL Neut % (Auto) 79.9 H (50-75) % Lymph % (Auto) 8.8 L (25-40) % [place] % (Auto) 11.0 (3-14) % Eos % (Auto) 0.1 L (2-4) % Baso % (Auto) 0.2 (0-2) % Neut # (Auto) 10212 H (2275-9079) /uL Lymph # (Auto) 1300 (1882-8262) /uL [place] # (Auto) 1600 H (0-900) /uL Eos # (Auto) 0 (0-450) /uL Baso # (Auto) 0 (0-100) /uL PT Cancelled INR Cancelled APTT (26.4-36.2) SECONDS Sodium (137-145) mmol/L Potassium (3.4-5.1) mmol/L Chloride (98-107) mmol/L Carbon Dioxide (22-32) mmol/L BUN (7-17) mg/dL Creatinine (0.52-1.04) mg/dL Estimated GFR (>60) mL/min BUN/Creatinine Ratio (6-22) Glucose (80-110) mg/dL Lactate (0.7-2.1) mmol/L Calcium (8.4-10.2) mg/dL Total Bilirubin (0.2-1.3) mg/dL AST (14-36) IU/L ALT (<35) IU/L Alkaline Phosphatase (38-126) U/L Total Creatine Kinase (30-135) U/L CK-MB (CK-2) (<2.37) ng/mL CK-MB (CK-2) Rel Index (1.5-5.0) % Troponin I (0.01-0.034) ng/mL NT-Pro-B Natriuret Pep Cancelled Total Protein (6.3-8.2) g/dL Albumin (3.5-5.0) g/dL Globulin (1.7-4.1) g/dL Albumin/Globulin Ratio (1.0-2.8) Procalcitonin (<0.5) ng/mL Urine Color Urine Appearance Urine pH (4.5-8.0) Ur Specific [place] (1.000-1.035) Urine Protein (Negative) Urine Glucose (UA) (Negative) g/dL Urine Ketones (NEGATIVE) Urine Occult Blood (Negative) Urine Nitrate (Negative) Urine Bilirubin (NEGATIVE) Urine Urobilinogen (0.2) E.U./dL Ur Leukocyte Esterase (NEGATIVE) Urine RBC (0-5/HPF) Urine WBC (0-5/HPF) Ur Squamous Epith Cells (0-5/HPF) Ur Transition Epith Cell (0-5/HPF) Urine Bacteria (None) Hyaline Casts (None) Urine Mucus (Negative) Ur Culture Indicated? SARS-CoV-2 (PCR) (Negative) 04/16/21 04/16/21 04/16/21 Range/Units 11:50 11:50 11:50 WBC (4.5-11.0) X10^3/uL RBC (4.0-5.2) X10^6/uL Hgb (12.0-16.0) g/dL Hct (36-46) % MCV (80-100) fL MCH (26-34) PG MCHC (30-36) % RDW (11.6-14.8) % Plt Count (150-400) X10^3/uL Neut % (Auto) (50-75) % Lymph % (Auto) (25-40) % [place] % (Auto) (3-14) % Eos % (Auto) (2-4) % Baso % (Auto) (0-2) % Neut # (Auto) (0732-2071) /uL Lymph # (Auto) (5230-2431) /uL [place] # (Auto) (0-900) /uL Eos # (Auto) (0-450) /uL Baso # (Auto) (0-100) /uL PT 12.6 INR 1.1 APTT 33 (26.4-36.2) SECONDS Sodium 140 (137-145) mmol/L Potassium 3.9 (3.4-5.1) mmol/L Chloride 102 (98-107) mmol/L Carbon Dioxide 25 (22-32) mmol/L BUN 28 H (7-17) mg/dL Creatinine 0.81 (0.52-1.04) mg/dL Estimated GFR > 60.0 (>60) mL/min BUN/Creatinine Ratio 34.6 H (6-22) Glucose 148 H (80-110) mg/dL Lactate 3.6 H (0.7-2.1) mmol/L Calcium 10.4 H (8.4-10.2) mg/dL Total Bilirubin 1.3 (0.2-1.3) mg/dL AST 87 H (14-36) IU/L ALT 47 H (<35) IU/L Alkaline Phosphatase 83 (38-126) U/L Total Creatine Kinase 1112 H (30-135) U/L CK-MB (CK-2) 11.30 H (<2.37) ng/mL CK-MB (CK-2) Rel Index 1.0 L (1.5-5.0) % Troponin I 0.045 H (0.01-0.034) ng/mL NT-Pro-B Natriuret Pep 1410 H Total Protein 8.3 H (6.3-8.2) g/dL Albumin 4.4 (3.5-5.0) g/dL Globulin 3.9 (1.7-4.1) g/dL Albumin/Globulin Ratio 1.1 (1.0-2.8) Procalcitonin 0.15 (<0.5) ng/mL Urine Color Urine Appearance Urine pH (4.5-8.0) Ur Specific [place] (1.000-1.035) Urine Protein (Negative) Urine Glucose (UA) (Negative) g/dL Urine Ketones (NEGATIVE) Urine Occult Blood (Negative) Urine Nitrate (Negative) Urine Bilirubin (NEGATIVE) Urine Urobilinogen (0.2) E.U./dL Ur Leukocyte Esterase (NEGATIVE) Urine RBC (0-5/HPF) Urine WBC (0-5/HPF) Ur Squamous Epith Cells (0-5/HPF) Ur Transition Epith Cell (0-5/HPF) Urine Bacteria (None) Hyaline Casts (None) Urine Mucus (Negative) Ur Culture Indicated? SARS-CoV-2 (PCR) (Negative) 04/16/21 04/16/21 04/16/21 Range/Units 11:50 14:40 16:00 WBC (4.5-11.0) X10^3/uL RBC (4.0-5.2) X10^6/uL Hgb (12.0-16.0) g/dL Hct (36-46) % MCV (80-100) fL MCH (26-34) PG MCHC (30-36) % RDW (11.6-14.8) % Plt Count (150-400) X10^3/uL Neut % (Auto) (50-75) % Lymph % (Auto) (25-40) % [place] % (Auto) (3-14) % Eos % (Auto) (2-4) % Baso % (Auto) (0-2) % Neut # (Auto) (0730-7109) /uL Lymph # (Auto) (7598-5629) /uL [place] # (Auto) (0-900) /uL Eos # (Auto) (0-450) /uL Baso # (Auto) (0-100) /uL PT INR APTT (26.4-36.2) SECONDS Sodium (137-145) mmol/L Potassium (3.4-5.1) mmol/L Chloride (98-107) mmol/L Carbon Dioxide (22-32) mmol/L BUN (7-17) mg/dL Creatinine (0.52-1.04) mg/dL Estimated GFR (>60) mL/min BUN/Creatinine Ratio (6-22) Glucose (80-110) mg/dL Lactate 2.5 H (0.7-2.1) mmol/L Calcium (8.4-10.2) mg/dL Total Bilirubin (0.2-1.3) mg/dL AST (14-36) IU/L ALT (<35) IU/L Alkaline Phosphatase (38-126) U/L Total Creatine Kinase (30-135) U/L CK-MB (CK-2) (<2.37) ng/mL CK-MB (CK-2) Rel Index (1.5-5.0) % Troponin I (0.01-0.034) ng/mL NT-Pro-B Natriuret Pep Total Protein (6.3-8.2) g/dL Albumin (3.5-5.0) g/dL Globulin (1.7-4.1) g/dL Albumin/Globulin Ratio (1.0-2.8) Procalcitonin (<0.5) ng/mL Urine Color Yellow Urine Appearance Clear Urine pH 5.5 (4.5-8.0) Ur Specific [place] 1.025 (1.000-1.035) Urine Protein 1+ H (Negative) Urine Glucose (UA) Trace H (Negative) g/dL Urine Ketones Trace H (NEGATIVE) Urine Occult Blood Trace-lysed (Negative) Urine Nitrate Negative (Negative) Urine Bilirubin Negative (NEGATIVE) Urine Urobilinogen 0.2 (0.2) E.U./dL Ur Leukocyte Esterase Negative (NEGATIVE) Urine RBC 0-1/hpf (0-5/HPF) Urine WBC 1-5/hpf (0-5/HPF) Ur Squamous Epith Cells 1-5 /hpf (0-5/HPF) Ur Transition Epith Cell 1-5/hpf (0-5/HPF) Urine Bacteria Occasional (0-1) (None) Hyaline Casts 5-10/lpf (None) Urine Mucus 1+ H (Negative) Ur Culture Indicated? Cult not indicated SARS-CoV-2 (PCR) Negative (Negative) Imaging Data CT scan - head: Radiologist's Impression: [employer] air images are in half: Within the left frontal temporal region, there is irregular density seen, which is large 8 attributed to underlying mass edema. However there are areas of hyperdensity seen which are attributed to acute hemorrhage. Associated mass effect with 5 mm midline shift can be seen. There is prominent narrowing of the left ventricle. Left-sided craniotomy changes are seen. Please correlate with known patient history and pathologic. Apparent chronic scalp hematoma seen on the right ECG Data Interpretation: Atrial fibrillation rate 120 MDM Narrative Medical decision making narrative: Patient was put under the wrong name initially if imaging is not showing up please look under pacs Patient is overall extremely poor historian. Patient has been given dilaudid fluids and Lopressor. She is noted to have a slightly increased CPK of 1000 likely from being on the floor. Urine is also noted to be quite dark. She is in AFib with RVR as well which improved some with fluids but she is given a dose of Lopressor as well. She complains of pain in her right hip which she is given dilaudid for. She is now resting comfortably. CT head does show intercranial swelling and bleeding mass. Patient apparently has had multiple MRIs but I do not have record of. Unclear if this is a new mass persistent or mass but certainly there is 5 mm of shift. Both DPOAs at bedside. Patient does not want life-saving interventions. They are agreeable to make hospice. Dr. Haas updated patient's symptoms which change and test results. Agrees to admission. Discharge Plan Departure Patient Disposition: Admitted as Observation Clinical Impression: Glioblastoma Admit Date/Time: 04/16/21 16:00 Admit Provider: Matti Haas
--- NOTE | 2021-04-16 12:40 | DI.RAD.S_ITS ---
PROCEDURE: XR HIP W PEL IF DONE RT 2V INDICATIONS: fall pain TECHNIQUE: AP pelvis with lateral view(s) of the right hip(s). COMPARISON: [facility], CT, CT CERVICAL SPINE WO CON, 04/16/2021, 12:57. [facility], CT, CT HEAD/BRAIN WO CON, 04/16/2021, 12:57. [facility], CR, XR CHEST 1V, 04/16/2021, 12:45. FINDINGS: Bones: No displaced fracture can be seen. No dislocation. There are patchy areas of low density seen within the right femoral head and neck. There is moderate to severe superior joint space narrowing seen of the right hip, with associated remodeling changes with subchondral sclerosis and osteophyte formation. Moderate degenerative change is seen of the contralateral left hip. Age-appropriate lower lumbar spine degenerative changes are noted. Soft tissues: Generalized soft tissue swelling can be seen surrounding the right hip. The visualized bowel gas pattern is normal. No suspicious soft tissue calcifications. IMPRESSION: No displaced fracture or dislocation can be seen. Moderate to severe right hip degenerative change. Soft tissue swelling can be seen surrounding the right hip. Patchy low density can be seen involving the right femoral head and neck. Differential diagnosis includes underlying neoplasm. When clinically appropriate, please consider a follow-up CT or MRI for further evaluation (assuming that there is no contraindication). Dictated by: Fausto Valera M.D. on 04/16/2021 at 12:45 Approved by: Fausto Valera M.D. on 04/16/2021 at 12:47
--- NOTE | 2021-04-16 12:40 | DI.RAD.S_ITS ---
PROCEDURE: XR CHEST 1V INDICATIONS: found down TECHNIQUE: One view of the chest was acquired. COMPARISON: [facility], CT, CT CERVICAL SPINE WO CON, 04/16/2021, 12:57. [facility], CT, CT HEAD/BRAIN WO CON, 04/16/2021, 12:57. [facility], CR, XR HIP W PEL IF DONE RT 2V, 04/16/2021, 12:45. FINDINGS: Surgical changes and devices: None. Lungs and pleura: On this supine examination, no large pneumothorax or large pleural effusions are seen. No focal areas of lung consolidation are seen. Low lung volumes are noted. This causes a crowded appearance to the lung markings and limits evaluation. Mediastinum: Mediastinal contours appear normal. Heart size is normal. Bones and chest wall: No suspicious bony lesions. Age-appropriate bony degenerative changes are seen. Overlying soft tissues appear unremarkable. IMPRESSION: Limited portable chest examination, without a significant cardiopulmonary abnormality identified. Dictated by: Fausto Valera M.D. on 04/16/2021 at 12:45 Approved by: Fausto Valera M.D. on 04/16/2021 at 12:45
[2021-04-16 13:10] LABS: INR 1.1 (0.9-1.3); Prothrombin Time 12.6 SECONDS (10.1-12.7)
[2021-04-16 13:12] LABS: PTT Partial Thromboplastin Tim 33 SECONDS (26.4-36.2)
[2021-04-16 13:13] LABS: Lactate (Lactic Acid) 3.6 mmol/L (0.7-2.1)
[2021-04-16 13:14] LABS: Add Manual Diff / Slide Review NO; Alanine Aminotransferase 47 IU/L (<35); Albumin 4.4 g/dL (3.5-5.0); Albumin Globulin Ratio 1.1 (1.0-2.8); Alkaline Phosphatase 83 U/L (38-126); Aspartate Aminotransferase 87 IU/L (14-36); BUN Creatinine Ratio 34.6 (6-22); Basophils Absolute Auto 0 /uL (0-100); Basophils Percent Auto 0.2 % (0-2); Bilirubin Total 1.3 mg/dL (0.2-1.3); Blood Urea Nitrogen 28 mg/dL (7-17); Calcium 10.4 mg/dL (8.4-10.2); Carbon Dioxide 25 mmol/L (22-32); Chloride 102 mmol/L (98-107); Creatine Kinase 1112 U/L (30-135); Eosinophils Absolute Auto 0 /uL (0-450); Eosinophils Percent Auto 0.1 % (2-4); Estimated Glomerular Filt Rate > 60.0 mL/min (>60); Globulin 3.9 g/dL (1.7-4.1); Glucose 148 mg/dL (80-110); HEMOLYSIS 18 (0-50); Hematocrit 55.1 % (36-46); Hemoglobin 17.8 g/dL (12.0-16.0); Lymphocytes Absolute Auto 1300 /uL (1100-4500); Lymphocytes Percent Auto 8.8 % (25-40); Mean Corpuscular HGB Conc 32.2 % (30-36); Mean Corpuscular Hemoglobin 29.9 PG (26-34); Mean Corpuscular Volume 92.8 fL (80-100); Monocytes Absolute Auto 1600 /uL (0-900); Neutrophils Absolute Auto 11900 /uL (1500-7000); Neutrophils Percent Auto 79.9 % (50-75); Platelet Count 398 X10^3/uL (150-400); Potassium 3.9 mmol/L (3.4-5.1); Red Blood Cell Count 5.94 X10^6/uL (4.0-5.2); Sodium 140 mmol/L (137-145); Total Protein 8.3 g/dL (6.3-8.2); White Blood Cell Count 14.9 X10^3/uL (4.5-11.0)
[2021-04-16 13:18] LABS: COVID19 -Nasal RAPID Negative (Negative)
[2021-04-16 13:26] LABS: NT-proBNP (BNP-Adult 18+) 1410 pg/mL (<450); Troponin I 0.045 ng/mL (0.01-0.034)
[2021-04-16 13:30] LABS: Procalcitonin 0.15 ng/mL (<0.5)
[2021-04-16] MEDS: SODIUM CHLORIDE 0.9% 1,000 ML 1000 ML IV (13:31)
[2021-04-16] MEDS: METOPROLOL TARTRATE 5 MG/5 ML INJ IV (14:23)
[2021-04-16] MEDS: HYDROMORPHONE 0.5 MG INJ IV (14:23)
[2021-04-16 14:57] LABS: Appearance Urine UA CLEAR; Bilirubin Urine UA NEGATIVE (NEGATIVE); Color Urine UA YELLOW; Glucose Urine UA TRACE g/dL (Negative); Ketones Urine UA TRACE (NEGATIVE); Leukocyte Esterase Urine UA NEGATIVE (NEGATIVE); Nitrite Urine UA NEGATIVE (Negative); Occult Blood Urine UA TRACE-LYSED (Negative); Protein Urine UA 1+ (Negative); Specific Gravity Urine UA 1.025 (1.000-1.035); Urobilinogen Urine UA 0.2 E.U./dL (0.2)
[2021-04-16 15:00] LABS: Reflexed Lactate in 2 Hours Y
[2021-04-16 15:04] LABS: Bacteria Urine Occasional (0-1); Culture Indicated Urine Cult Not Indicated; Hyaline Casts Urine 5-10/LPF; Mucus Urine 1+ (Negative); RBC Urine 0-1/HPF (0-5/HPF); Squamous Epithelial Cell Urine 1-5 /HPF (0-5/HPF); Transitional Epi Cells Urine 1-5/HPF (0-5/HPF); WBC Urine 1-5/HPF (0-5/HPF); pH Urine UA 5.5 (4.5-8.0)
[2021-04-16 16:37] LABS: Lactate 2HR (Lactic Acid Rflx) 2.5 mmol/L (0.7-2.1)
[2021-04-16] MEDS: SODIUM CHLORIDE 0.9% 1,000 ML 100 ML IV (17:02)
--- NOTE | 2021-04-16 17:27 | PC.NURSE ---
Pearl note: Bedside nursing swallow screen failed. Patient unable to swallow or cough on command, inconsistently following of cues. Dr. Haas made aware.
--- NOTE | 2021-04-16 17:46 | P.HP_ITS ---
History of Present Illness History of Present Illness Date Patient Seen: 04/16/21 Time Patient Seen: 17:46 Chief complaint: GLF Narrative: This is a 75-year-old female with a past history of glioblastoma who was brought into the emergency room by her neighbor after being found down. Patient is alert but confused, does not remember what happened. No further history is available at this time. After extensive chart review it does appear that the patient has a history of a craniotomy, and has prior images noting a left frontal temporal mass that has been worsening. She was also in the emergency room and sent to [facility] with this mass and subsequent bleeding at that time. It is unknown what occurred at Health system or what has transpired since then. Review electronic pharmacy records do show that the patient has been taking famotidine, Keppra, Ativan, metoprolol, olanzapine. In the emergency room, the patient was complaining of hip pain which is great chronic for her. Initial laboratory evaluation revealed a mild leukocytosis with WBC 14.9, elevated hemoglobin at 17.8, but the remainder of her labs were fairly unremarkable. Her lactate was mildly elevated at 2.5. She also has a mild transaminitis. CK level was 1112, troponin was mildly elevated at 0.045. ProBNP was 1410. Procalcitonin was within normal limits at 0.15. Urinalysis sh owed no evidence of infection. COVID-19 testing was negative. X-ray of her hip showed a possible right femoral hypodensity, which could be related to malignancy. Chest x-ray was read as unremarkable but has low lung volumes, and with my read there appears to be some blurring of her right hemidiaphragm. CT scan of her head showed a left frontal temporal mass, with 5 mm of midline shift and a scalp hematoma. CT of her C-spine showed no acute fractures. In the emergency room, ER provider had discussion with DPPETER who was the patient's neighbor and friend visiting from [place]. They left from the emergency room, but stated that the patient should be made comfortable with pursual of hospice. Patient was admitted under observation. Patient History Medical History (Updated 04/16/21 @ 18:16 by Matti Haas DO) Atrial fibrillation Glioblastoma Surgical History H/O craniotomy Family & Social History Family history unavailable: Yes (unable to review given patient's mental status) Social History: household members none Tobacco & Substance use: Smoking Status Former smoker alcohol intake frequency 0-2 drinks per day Substance Use Type does not use Meds Home Medications and Allergies Home Medications Medication Instructions Recorded Confirmed Type apixaban 5 mg tablet (Eliquis) 5 mg PO BID 04/16/21 History famotidine 20 mg tablet 20 mg PO BID 04/16/21 History levetiracetam 750 mg 750 mg PO DAILY 04/16/21 History tablet,extended release 24 hr metoprolol succinate 100 mg 100 mg PO DAILY 04/16/21 History tablet,extended release 24 hr olanzapine 2.5 mg tablet 2.5 mg PO TID 04/16/21 History Allergies Allergy/AdvReac Type Severity Reaction Status Date / Time No Allergy Information Allergy Verified 01/03/21 07:59 Available Review of Systems Review of Systems Narrative: All other systems reviewed with the patient and are negative unless otherwise stated. Though it should be noted that review of these symptoms is limited due to the patient's current mental status. Exam Vital Signs (past 8 hours): - 04/16/21 12:44 04/16/21 12:52 04/16/21 12:57 Temperature 96.1 F L 96.1 F L Pulse Rate 110 H 167 H 123 H Respiratory Rate 20 20 30 H Blood Pressure 134/90 134/90 Pulse Oximetry 95 95 96 04/16/21 13:00 04/16/21 13:02 04/16/21 13:24 Temperature Pulse Rate 125 H 146 H 173 H Respiratory Rate 30 H 30 H 28 H Blood Pressure 148/79 H 129/79 Pulse Oximetry 96 96 81 L 04/16/21 13:30 04/16/21 13:31 04/16/21 14:00 Temperature Pulse Rate 142 H 118 H 146 H Respiratory Rate 28 H 28 H 31 H Blood Pressure 154/77 H 138/86 Pulse Oximetry 95 97 97 04/16/21 14:30 04/16/21 15:00 04/16/21 15:01 Temperature 98.8 F 99.0 F Pulse Rate 99 H 93 H 90 Respiratory Rate 30 H 23 24 Blood Pressure 154/73 H 116/65 Pulse Oximetry 97 95 96 04/16/21 15:30 04/16/21 16:00 04/16/21 16:34 Temperature 99.3 F 99.3 F 97.0 F L Pulse Rate 98 H 124 H 84 Respiratory Rate 24 26 H 18 Blood Pressure 125/69 138/76 142/80 H Pulse Oximetry 93 95 95 Oxygen Delivery Method Room Air Oxygen Flow Rate 0 Narrative Exam Narrative: GENERAL APPEARANCE: Well developed, well nourished, but chronically ill-appearing female in no acute distress SKIN: Inspection of the skin reveals no rashes, ulcerations or petechiae. HEENT: R posterior scalp elevation, corresponds to hematoma seen on CT imaging, extraocular muscles are intact, oropharynx is clear and mucous membranes are dry, neck is supple without adenopathy. No apparent tongue bites. NECK: Supple and symmetric. There was no thyroid enlargement, and no tenderness, or masses were felt. CHEST: Normal AP diameter and normal contour without any kyphoscoliosis. LUNGS: Auscultation of the lungs revealed diminished breath sounds at bilateral lung bases, no obvious wheezing, rhonchi, or rales. CARDIOVASCULAR: Tachycardic and irregularly irregular rhythm, no murmurs. ABDOMEN: Soft, nondistended, and nontender. MUSCULOSKELETAL: There was no tenderness or effusions noted. Muscle strength was diminished in bilateral lower extremities. EXTREMITIES: No cyanosis, clubbing. There is bilateral nonpitting edema. NEUROLOGIC: Alert, not oriented, sometimes responds appropriately while others her responses are nonsensical and difficult to understand. Intermittently follows commands. Objective ECG Impression: Atrial fibrillation with rapid ventricular response, rate 120. Imaging CT scan - head: Radiologist's impression: Within the LEFT frontal temporal region, there is irregular density seen, which is largely attributed to underlying mass with edema. However, there are areas of hyperdensity seen, which are attributed to acute hemorrhage. Associated mass effect with 5 mm midline shift can be seen. There is prominent narrowing of the LEFT lateral ventricle. LEFT-sided craniotomy changes are seen. Please correlate with known patient history and pathologic results. Apparent chronic scalp hematoma seen on the RIGHT. Labs Result Diagrams: 04/16/21 11:50 04/16/21 11:50 Labs: Laboratory Results - last 24 hr 04/16/21 04/16/21 04/16/21 11:50 11:50 11:50 WBC 14.9 H RBC 5.94 H Hgb 17.8 H Hct 55.1 H MCV 92.8 MCH 29.9 MCHC 32.2 RDW 15.0 H Plt Count 398 Neut % (Auto) 79.9 H Lymph % (Auto) 8.8 L [place] % (Auto) 11.0 Eos % (Auto) 0.1 L Baso % (Auto) 0.2 Neut # (Auto) 85058 H Lymph # (Auto) 1300 [place] # (Auto) 1600 H Eos # (Auto) 0 Baso # (Auto) 0 PT Cancelled INR Cancelled APTT Sodium Potassium Chloride Carbon Dioxide BUN Creatinine Estimated GFR BUN/Creatinine Ratio Glucose Lactate Calcium Total Bilirubin AST ALT Alkaline Phosphatase Total Creatine Kinase CK-MB (CK-2) CK-MB (CK-2) Rel Index Troponin I NT-Pro-B Natriuret Pep Cancelled Total Protein Albumin Globulin Albumin/Globulin Ratio Procalcitonin Urine Color Urine Appearance Urine pH Ur Specific [place] Urine Protein Urine Glucose (UA) Urine Ketones Urine Occult Blood Urine Nitrate Urine Bilirubin Urine Urobilinogen Ur Leukocyte Esterase Urine RBC Urine WBC Ur Squamous Epith Cells Ur Transition Epith Cell Urine Bacteria Hyaline Casts Urine Mucus Ur Culture Indicated? SARS-CoV-2 (PCR) 04/16/21 04/16/21 04/16/21 11:50 11:50 11:50 WBC RBC Hgb Hct MCV MCH MCHC RDW Plt Count Neut % (Auto) Lymph % (Auto) [place] % (Auto) Eos % (Auto) Baso % (Auto) Neut # (Auto) Lymph # (Auto) [place] # (Auto) Eos # (Auto) Baso # (Auto) PT 12.6 INR 1.1 APTT 33 Sodium 140 Potassium 3.9 Chloride 102 Carbon Dioxide 25 BUN 28 H Creatinine 0.81 Estimated GFR > 60.0 BUN/Creatinine Ratio 34.6 H Glucose 148 H Lactate 3.6 H Calcium 10.4 H Total Bilirubin 1.3 AST 87 H ALT 47 H Alkaline Phosphatase 83 Total Creatine Kinase 1112 H CK-MB (CK-2) 11.30 H CK-MB (CK-2) Rel Index 1.0 L Troponin I 0.045 H NT-Pro-B Natriuret Pep 1410 H Total Protein 8.3 H Albumin 4.4 Globulin 3.9 Albumin/Globulin Ratio 1.1 Procalcitonin 0.15 Urine Color Urine Appearance Urine pH Ur Specific [place] Urine Protein Urine Glucose (UA) Urine Ketones Urine Occult Blood Urine Nitrate Urine Bilirubin Urine Urobilinogen Ur Leukocyte Esterase Urine RBC Urine WBC Ur Squamous Epith Cells Ur Transition Epith Cell Urine Bacteria Hyaline Casts Urine Mucus Ur Culture Indicated? SARS-CoV-2 (PCR) 04/16/21 04/16/21 04/16/21 11:50 14:40 16:00 WBC RBC Hgb Hct MCV MCH MCHC RDW Plt Count Neut % (Auto) Lymph % (Auto) [place] % (Auto) Eos % (Auto) Baso % (Auto) Neut # (Auto) Lymph # (Auto) [place] # (Auto) Eos # (Auto) Baso # (Auto) PT INR APTT Sodium Potassium Chloride Carbon Dioxide BUN Creatinine Estimated GFR BUN/Creatinine Ratio Glucose Lactate 2.5 H Calcium Total Bilirubin AST ALT Alkaline Phosphatase Total Creatine Kinase CK-MB (CK-2) CK-MB (CK-2) Rel Index Troponin I NT-Pro-B Natriuret Pep Total Protein Albumin Globulin Albumin/Globulin Ratio Procalcitonin Urine Color Yellow Urine Appearance Clear Urine pH 5.5 Ur Specific [place] 1.025 Urine Protein 1+ H Urine Glucose (UA) Trace H Urine Ketones Trace H Urine Occult Blood Trace-lysed Urine Nitrate Negative Urine Bilirubin Negative Urine Urobilinogen 0.2 Ur Leukocyte Esterase Negative Urine RBC 0-1/hpf Urine WBC 1-5/hpf Ur Squamous Epith Cells 1-5 /hpf Ur Transition Epith Cell 1-5/hpf Urine Bacteria Occasional (0-1) Hyaline Casts 5-10/lpf Urine Mucus 1+ H Ur Culture Indicated? Cult not indicated SARS-CoV-2 (PCR) Negative Assessment & Plan Assessment & Plan narrative: This is a 75-year-old female with a past history of glioblastoma who was brought into the emergency room by her neighbor after being found down. She was found to have what appears to be a worsening brain mass with midline shift, possible intracranial bleeding along with a scalp hematoma. Per discussions with the ER and DPOA the patient is comfort measures only at this time and plan is for hospice. 1. Glioblastoma, active, with intracranial edema and acute hemorrhage -from what has been pieced together the patient has glioblastoma and according to some imaging reports from [facility] likely had a resection at some time in the past. She appears to be on seizure medications and had been on dexamethasone. CT scan here shows what appears to be worsening mass with midline shift, 5 mm and with the mass associated edema and probable acute hemorrhage. This midline shift appears new compared to MRI from March 30. -per DPOA comfort measures, no interventions -from review appears patient on keppra, will give 500 mg IV BID for seizure preventions. -will also give decadron given vasogenic edema to see if any improvement in mental status. Currently unable to swallow. 2. Found down - suspect possible seizure given history, or falls in the setting of worsening glioblastoma. 3. Atrial fibrillation with rapid ventricular response, unknown type - try to control rate for now, for now will keep comfort measures. Unable to reach DPOA currently to further clarify if IVF wanted, medications for rate control, etc. Given initial discussions will give minimal treatments with comfort in mind. - eliquis on hold given intracranial hemorrhage. 4. Elevated troponin - may be in setting of possible seizure, will continue to follow for now given unclear goals of care. 5. Rhabdomyolysis, acute, present on admission - continue IV fluids, pending goals of care discussions. 6. Leukocytosis, - suspect secondary to dehydration, maybe with aspiration pneumonia, may be from possible seizure. Continue to monitor for fever or signs of infection. Code: DNR, surrogate neighbor Hans and friend Eliane from [place], both DPOA. Will continue to try and reach out for contact. DVT: hold given active bleeding. Dispo: admit under observation, probable discharge on hospice. I have utilized all available immediate resources to obtain, update, or review t he patient's current medications. Time Spent With Patient Critical Care time: I spent a total of [] minutes of critical care time on this patient's care today; this time is exclusive of procedural time. Quality MIPS - Admit I confirm the patient?s Advance Care Plan is present, Code status is documented, Surrogate decision maker is in patient?s record [If Yes, STOP here]: Yes
[2021-04-16] MEDS: DEXAMETHASONE 10 MG/ML VIAL IV (19:19)
[2021-04-16] MEDS: levETIRAcetam 500 MG in SODIUM CHLORIDE 0.9% 100 ML 420 ML IV (19:19)
[2021-04-17] VITALS (13 sets, daily range): BP systolic 121–143; BP diastolic 71–81; PULSE 73–103; RESP 16–20; TEMP 36.1–36.8; O2SAT 91–96
[2021-04-17] MEDS: DEXAMETHASONE 4 MG/ML VIAL IV ×5 (01:29→23:37)
[2021-04-17] MEDS: HYDROMORPHONE 0.5 MG INJ IV ×4 (01:42→17:55)
[2021-04-17] MEDS: SODIUM CHLORIDE 0.9% 1,000 ML 100 ML IV ×2 (02:27→13:27)
[2021-04-17] MEDS: levETIRAcetam 500 MG in SODIUM CHLORIDE 0.9% 100 ML 400 ML IV (07:00)
--- NOTE | 2021-04-17 08:23 | PT-IP ANOTE ---
PT speaks with nursing after noting that pt dx with glioblastoma and has a hospice order. Nsg recommends d/c PT and PT in agreement.
--- NOTE | 2021-04-17 08:26 | OT.IPNOTE ---
OT order received, chart reviewed. Pt with glioblastoma and hospice order. Per nursing, pt is not appropriate for therapy at this time and requested that therapy discharge the order. Please reorder if pt becomes appropriate for therapy.
--- NOTE | 2021-04-17 10:59 | PC.NURSE ---
Addendum entered by Shanna Doran R.N. 04/17/21 11:35: Per ST patient is unable to sit up beyond 30 degrees due to pain to hip; NPO will continue until tomorrow morning when speech will re-evaluate Original Note: Orientation: Pt difficult to arouse this morning, confused, expressive aphasia, A&O X 1, says that she is in [place], recognizes friend's name, Kianna, anxious; partially consolable Severe Pain: pain to Left hip, IV dilaudid Skin: repositioned at 1100 due to immobility to prevent skin breakdown; skin intact, powder in folds Safety: bed alarm active
--- NOTE | 2021-04-17 12:20 | SLP.IPNOTE ---
[employer]PER[employer]OR [employer] Elvia attempted to assess pt at 11:00 this morning. Pt presents with irregular speech patterns involving moments of dysfluency and the inability to form complete, coherent sentences at that time. Pt followed a few simple verbal commands. [employer] informally observed overall oral weakness in tongue and jaw movement. Laryngeal palpation was attempted as well with noted reduced movement of the structures. SUPERVISOR [employer] began to raise the pt's bed to attempt PO trials with pt until she reported that she was uncomfortable and experiencing pain. Due to pt's inability to sit upright, PO trials were not administered for pt safety. [employer]PER[employer] team to follow and reassess to determine safest diet for the pt upon discharge. SUPERVISOR [employer] left room at 11:20.
--- NOTE | 2021-04-17 14:30 | PM.PN.1 ---
Subjective Subjective Date Patient Seen: 04/17/21 Time Patient Seen: 14:30 Interval history: 75 year old female with glioblastoma admitted after being found down. Somewhat improved mental status today, though still with word salad. Failed speech eval today, remains NPO. Discussed with friend from [place] and ANSHU, goal is to return home hopefully to continue eating and have some wine. Discussed may not be possible but will continue steroids to see if she is able to swallow given some improvement thus far. Speech non-sensical, unable to assess her current comfort subjectively, but appears comfortable. Exam Vital Signs (past 8 hours): - 04/17/21 07:00 04/17/21 09:15 04/17/21 09:27 Temperature 98.0 F Pulse Rate 73 Respiratory Rate 17 Blood Pressure 125/75 Pulse Oximetry 94 91 94 04/17/21 11:00 04/17/21 13:38 04/17/21 14:03 Temperature 98.1 F Pulse Rate 82 Respiratory Rate 17 Blood Pressure 133/71 Pulse Oximetry 94 94 94 Oxygen Delivery Method Room Air Oxygen Flow Rate 0 Narrative Exam Narrative: GENERAL APPEARANCE: Well developed, well nourished, but chronically ill-appearing female in no acute distress SKIN: Inspection of the skin reveals no rashes, ulcerations or petechiae. HEENT:? R posterior scalp elevation, corresponds to hematoma seen on CT imaging, extraocular muscles are intact, oropharynx is clear and mucous membranes are moist, neck is supple without adenopathy.? No apparent tongue bites. NECK: Supple and symmetric. There was no thyroid enlargement, and no tenderness, or masses were felt. CHEST: Normal AP diameter and normal contour without any kyphoscoliosis. LUNGS: Auscultation of the lungs revealed diminished breath sounds at bilateral lung bases, no obvious wheezing, rhonchi, or rales. CARDIOVASCULAR:? Tachycardic and irregularly irregular rhythm, no murmurs. ABDOMEN: Soft, nondistended, and nontender. MUSCULOSKELETAL: significant L hip tenderness, no joint effusions noted.? Muscle strength was diminished in bilateral lower extremities. EXTREMITIES: No cyanosis, clubbing.? There is bilateral nonpitting edema in her lower extremities. NEUROLOGIC:? Alert, not oriented, sometimes responds appropriately while others her responses are nonsensical and difficult to understand.? Intermittently follows commands. Objective Labs Result Diagrams: 04/16/21 11:50 04/16/21 11:50 Labs: Laboratory Results - last 24 hr 04/16/21 04/16/21 14:40 16:00 Lactate 2.5 H Urine Color Yellow Urine Appearance Clear Urine pH 5.5 Ur Specific [place] 1.025 Urine Protein 1+ H Urine Glucose (UA) Trace H Urine Ketones Trace H Urine Occult Blood Trace-lysed Urine Nitrate Negative Urine Bilirubin Negative Urine Urobilinogen 0.2 Ur Leukocyte Esterase Negative Urine RBC 0-1/hpf Urine WBC 1-5/hpf Ur Squamous Epith Cells 1-5 /hpf Ur Transition Epith Cell 1-5/hpf Urine Bacteria Occasional (0-1) Hyaline Casts 5-10/lpf Urine Mucus 1+ H Ur Culture Indicated? Cult not indicated PFSH Medical History (Updated 04/16/21 @ 18:16 by Matti Haas DO) Atrial fibrillation Glioblastoma Surgical History H/O craniotomy Social History (System 01/03/21 @ 07:59 by Sharron Vazquez) household members: none Smoking Status: Former smoker Assessment & Plan Assessment & Plan narrative: This is a 75-year-old female with a past history of glioblastoma who was brought into the emergency room by her neighbor after being found down.? She was found to have what appears to be a worsening brain mass with midline shift, possible intracranial bleeding along with a scalp hematoma.? Per discussions with the ER and DPOA the patient is comfort measures only at this time and plan is for hospice. 1. Glioblastoma, active, with intracranial edema and acute hemorrhage ?-from what has been pieced together the patient has glioblastoma and according to some imaging reports from [facility] and had a resection in the past.? She appears to be on seizure medications and had been on dexamethasone.? CT scan here shows what appears to be worsening mass with midline shift, 5 mm and with the mass associated edema and probable acute hemorrhage.? This midline shift appears new compared to MRI from March 30. -per DPOA comfort measures, no aggressive interventions but goals is for patient to return home on hospice, ideally with the ability to eat. -from review appears patient on keppra, will give 500 mg IV BID for seizure preventions. Continue for now. If able to tolerate oral intake restart home 750 mg daily. -will also give decadron given vasogenic edema to see if any improvement in swallowing, her mental status is somewhat improved today. Currently unable to swallow. -continue speech therapy. 2. Found down ?- suspect possible seizure given history, or falls in the setting of worsening glioblastoma. 3. Atrial fibrillation with rapid ventricular response, unknown type ?- try to control rate for now, for now will keep comfort measures. Give minimal treatments with comfort in mind. ?- eliquis on hold given intracranial hemorrhage. 4. Elevated troponin ?- may be in setting of possible seizure, will continue to follow for now given unclear goals of care. Peak 0.045. Please note it appears patient's name was shifted and some of her admission labs are not in the chart. Given goals of care no further evaluation necessary. 5. Rhabdomyolysis, acute, present on admission ?- continue IV fluids for now given rhabdomyolysis, if discharged home or unable to swallow tomorrow consider stopping treatment. 6. Leukocytosis, ?- suspect secondary to dehydration, maybe with aspiration pneumonia, may be from possible seizure. Continue to monitor for fever or signs of infection. No further labs necessary. Code: DNR, surrogate neighbor Hans and friend Eliane from [place], both DPOA. DVT: hold given active bleeding. Dispo: changed to inpatient, plan for discharge home on hospice. Timing in the next few days, likely 2. Will see if she is able to eat with continued steroids. Time Spent With Patient Critical Care time: I spent a total of [] minutes of critical care time on this patient's care today; this time is exclusive of procedural time.
--- NOTE | 2021-04-17 14:56 | CM.DANOTE ---
Addendum entered by Berenice Gonzales R.N. 04/17/21 15:34: Dr. Haas updated friend/POA, Eliane. [facility] a message with [facility] as well. Eliane is planning on meeting with Hans, other POA/neighbor, this afternoon to set up home caregiver. They have someone in mind, she is a private caregiver named Mandy Knowles. She also has a network of other caregivers as well. Will meet with her again tomorrow to discuss outcome. Original Note: DCP: Case received, EMR reviewed and met with patient. Introduced self and role. Initially, met with patient, but unable to obtain accurate information secondary to her cognitive status. Friend (ANSHU), came in, and was able to complete DCP assessment based upon information that she had given. Patient is a 75 year old female who admitted yesterday afternoon to the care of the hospitalist team. PCP: Dr. Parris Frye. Payer: Medicare/OOgave. Patient came to the hospital via ambulance secondary to a fall that occurred at home. Patient was noted to be in a-fib with RVR, but also has history of stage 4 glioblastoma. He is not undergoing any treatment per her choice, and hospice orders have been placed Attempted to speak to patient. She was not cognitive, in the fact that she didn't answer questions, such as where she came from, or if she lived alone, work salad. It is noted that she lives here in [place], and has friends, Kianna Luna, who is DPOA, and ANSHU Tompkins. Was able to meet with Eliane in patient's room. She indicated, Laine is no longer POA, but neighbor, Hans, who is neighbor, is other POA. Hans's phone number is: [phone]. Eliane lives in [place], but plans on being here for several days. She indicated and confirmed that patient lives alone, uses a walker. Stated that she had fallen in her home, her neighbor had found her. She mentioned that patient used to have caregivers in the home, but decided that she did not need them. She indicated, they do have a caregiver in mind that could stay with her, for patient will need caregiving in the home ladies' locker room attendant upon discharge. Briefly mentioned hospice, and asked hospitalist to go into the room and discuss with her. Kianna indicated, she would do better at home, skilled rehab wouldn't be good for her. [facility] Updated Cody about the referral, she is aware. Patient is awake, pleasantly confused. Let her know that this family caseworker would update her after speaking to POA. P: DCP to continue to follow. The plan is for patient to go home with hospice services. Will need to ensure that patient has caregivers in place before she goes home. Berenice Gonzales RN/Mixing Technician
--- NOTE | 2021-04-17 18:04 | PC.NURSE ---
pt awake, word salad. Some words/sentences one can understand. pt does not attempt to move in bed. pt does follow directions. Turned to left side and pt stated, that's enough. BLE edema, HR irregular, rate 100. urine in maldonado brown color.
[2021-04-17] MEDS: levETIRAcetam 500 MG in SODIUM CHLORIDE 0.9% 100 ML 420 ML IV (18:47)
[2021-04-18] VITALS (16 sets, daily range): BP systolic 125–152; BP diastolic 66–85; PULSE 63–96; RESP 16–20; TEMP 36.2–37; O2SAT 94–98
[2021-04-18] MEDS: SODIUM CHLORIDE 0.9% 1,000 ML 75 ML IV ×2 (02:13→16:36)
[2021-04-18] MEDS: DEXAMETHASONE 4 MG/ML VIAL IV ×3 (05:29→18:12)
[2021-04-18] MEDS: levETIRAcetam 500 MG in SODIUM CHLORIDE 0.9% 100 ML 420 ML IV ×2 (06:11→18:18)
[2021-04-18] MEDS: METOPROLOL ER 50 MG TABLET PO ×2 (09:57→20:03)
--- NOTE | 2021-04-18 10:29 | ST.IPIE ---
Visit Care Team Role Provider Type Parris Frye MD Primary Care Provider Physician Specialty: Internal Medicine Address: [address] [place] [address], [id number] Email: [email or web address] Madeleine Rutherford DO Emergency Provider Physician Referring Provider Specialty: Emergency Medicine Address: [address] [place] [address], [address] Email: [email or web address] Matti Haas DO Admit Provider Physician Attending Provider Specialty: Internal Medicine Address: [address] [place] [address], [address] Email: [email or web address] Past Medical History (Last Updated 04/16/21 @ 18:16 by Matti Haas DO) Atrial fibrillation (Medical) Glioblastoma (Medical) H/O craniotomy (Medical) ST IP Initial Evaluation Report PIGMENT PUSHER Clinical Swallow Evaluation Start: 04/18/21 10:07 Freq: Status: Active Protocol: Document 04/18/21 10:08 KATIE (Rec: 04/18/21 10:29 KATIE [id number]) Clinical Swallow Evaluation Session Time Visit Start Time 09:05 Visit Stop Time 09:30 Total Visit Minutes [address] Matti Haas Reason for Referral Stroke Protocol Setting Assessment Location Acute Care Visit Type Note Type Initial evaluation Next Note Type Next Note Type Treatment Note Patient Information Identification Type Name,ID Card History The pt is a 75-year-old female with a past history of glioblastoma who was brought into the emergency room by her neighbor after being found down.? She was found to have what appears to be a worsening brain mass with midline shift , possible intracranial bleeding along with a scalp hematoma.? Per discussions with the ER and DPOA the patient is comfort measures only at this time and plan is for hospice. The pt failed nursing bedside evaluation and was made NPO pending PIGMENT PUSHER swallow eval, which was attempted yesterday, but pt was unable to participate. Subjective Observations The pt was asleep, lying on her back upon PIGMENT PUSHER's arrival. She aroused somewhat to verbal prompts, moreso when HOB was raised. The pt attempted to verbally communicate and was quite verbose; unfortunately, only the initial 1 or 2 words of sentences were intelligible . This improved mildly over the course of the session, seemingly as the pt became more awake and alert, and this PIGMENT PUSHER was able to understand up to ~4 words at at time, yet not enough to understand complete messages. A communication board was reviewed with NSG and left in the room, but pt's ability to use was not evaluated d/t time constraints. Will reattempt speech/language evaluation as able. Reported by Patient Current Diet Nothing by mouth Baseline Feeding Method Needs some assistance Patient Questionnaire No Objective Assessment Mental Status Alert,Responsive,Cooperative, Confused Oral Integrity WFL Dentition Missing teeth Lip Function Mild impairment Observation of Lips at Rest Symmetrical Pucker Reduced strength Tongue Function Mild impairment Observations of Tongue at Rest Involuntary movement(s) Tongue Protrusion Involuntary movement(s), Reduced strength Jaw Opening Within normal limits Jaw Closing Within normal limits Observations of Hard/Soft Palate Reduced strength/ROM of soft palate elevation Nasality Within normal limits Phonation Within normal limits Respiratory Sufficiency Within normal limits Comment The pt was unable to follow directions sufficiently to participate in oral peripheral exam. The pt appears to have some molars missing, although visualization of the oral cavity was limited. Mild lingual tremor was observed upon protrusion, possibly from generalized weakness. Initially she exhibited slowed response to spoon and cup presentations, with limited labial seal; however, this improved to WFL as the pt became more awake and alert, and she did self-feed from spoon and cup with hand-over- hand assistance. Pt adequately masticated diced peaches, and exhibited no abnormal oral residue or pocketing. Hyolaryngeal elevation/ excursion was WFL via palaption. Pt was unable to perform volitional swallow. Food and Liquid Trials Position During Assessment Upright (90 degrees) Liquids Trialed Thin,[place] Solids Trialed Puree,Dysphagia Mechanical Administration Type Tea spoon,Cup single sip, Controlled cup sip,Cup consecutive sips,Needs some assistance Oral Impairment Mildly impaired Oral Phase Comments Pt exhibited delayed or absent swallow trigger with initial tsp trials of thin liquid. Swallow trigger became more timely over the course of trials. Pharyngeal Impairment Moderately impaired Pharyngeal Phase Comments Pt exhibited strong delayed cough x3 with tsp (PIGMENT PUSHER administered) and cup sips ( self-administered) of thin liquid, indicating possibly delayed pharyngeal clearance and reduced airway protection. No overt s/sx of aspiration were observed with NTL or pureed and dysphagia mechanical textures. Voice remained clear throughout. Comment The pt demonstrated adequate endurance with limited trials. Given generalized weakness and confusion, she may fatigue over the course of a meal. Requires supervision. Findings Swallowing Function Oropharyngeal phase dysphagia Severity of Swallow Impairment Mildly-moderately impaired Contributing Factors to Swallow Reduced alertness or attention Impairment ,Difficulty following directions,Reduced oral strength/coordination/ sensation,Delayed swallow initiation,Impaired airway protection Prognosis Fair Based on Cognitive status,Age, Comorbidities Impact on Safety and Functioning Risk for aspiration Recommendations Instrumental Assessment No Swallowing Treatment Yes Frequency As appropriate within comfort care measures Recommended Solids Dysphagia Mechanical Recommended Liquids [place] Safety Precautions/Swallowing Supervision needed for all Recommendations meals,Feed only when alert, Reduce distractions,Remain upright (90 degrees) during all oral intake,Small bites and sips when eating,Slow rate ; swallow between bites,Set-up assistance,Strict oral care after intake,Check for pocketing Medication Recommendations Crushed in Carrier Discharge Recommendations Home with Hospice Education Patient/Caregiver Education Described results of evaluation,Patient expressed understanding of evaluation, Family/caregivers require further education/training Goals Short-term Goals 1. Ongoing assessment of swallow safety and communication skills. 2. Caregiver training for swallow safety and alternative communication strategies. Long-term Goals 1. The pt will tolerate least restrictive diet to meet her nutrition and hydration needs. 2. The pt will demonstrate ability to communicate basic wants/needs with family and medical team to participate in ADLs and medical decisions.
--- NOTE | 2021-04-18 11:53 | P.PN_ITS ---
Subjective Subjective Date Patient Seen: 04/18/21 Time Patient Seen: 08:00 Interval history: Today she is working with speech and swallow therapy. She is not intelligible, with word salad produced and some slight confusion as well, but does follow commands. Exam Vital Signs (past 8 hours): - 04/18/21 04:00 04/18/21 07:34 04/18/21 09:00 Temperature 97.1 F L 98.2 F Pulse Rate 73 67 Respiratory Rate 18 18 Blood Pressure 135/80 125/77 Pulse Oximetry 98 98 97 04/18/21 09:57 04/18/21 11:20 Temperature Pulse Rate 67 63 Respiratory Rate Blood Pressure 125/77 129/68 Pulse Oximetry Oxygen Delivery Method Room Air Oxygen Flow Rate 0 Narrative Exam Narrative: GENERAL APPEARANCE: chronically ill-appearing female in no acute distress HEENT: R posterior scalp elevation, corresponds to hematoma seen on CT imaging, extraocular muscles are intact, oropharynx is clear and mucous membranes are moist, neck is supple without adenopathy. LUNGS: Auscultation of the lungs revealed diminished breath sounds at bilateral lung bases, no obvious wheezing, rhonchi, or rales. CARDIOVASCULAR: Tachycardic and irregularly irregular rhythm, no murmurs. ABDOMEN: Soft, nondistended, and nontender. MUSCULOSKELETAL: significant L hip tenderness, no joint effusions noted. Muscle strength was diminished in bilateral lower extremities. EXTREMITIES: No cyanosis, clubbing. There is bilateral nonpitting edema in her lower extremities. NEUROLOGIC: Alert, not orientedresponses are nonsensical and difficult to understand. Intermittently follows commands. Objective Labs Result Diagrams: 04/16/21 11:50 04/16/21 11:50 [facility] Medical History (Updated 04/16/21 @ 18:16 by Matti Haas DO) Atrial fibrillation Glioblastoma Surgical History H/O craniotomy Social History (System 01/03/21 @ 07:59 by Sharron Vazquez) household members: none Smoking Status: Former smoker Assessment & Plan Assessment & Plan narrative: 75W with a past history of glioblastoma who was brought into the emergency room by her neighbor after being found down. She was found to have what appears to be a worsening brain mass with midline shift, possible intracranial bleeding along with a scalp hematoma. Per discussions with the ER and DPOA the patient is comfort measures only at this time and plan is for hospice. 1. Glioblastoma, active, with intracranial edema and acute hemorrhage -from what has been pieced together the patient has glioblastoma and according to some imaging reports from [facility] and had a resection in the past. She appears to be on seizure medications and had been on dexamethasone. CT scan here shows what appears to be worsening mass with midline shift, 5 mm and with the mass associated edema and probable acute hemorrhage. This midline shift appears new compared to MRI from March 30. -per DPOA comfort measures, no aggressive interventions but goals is for patient to return home on hospice, ideally with the ability to eat. -from review appears patient on keppra, will give 500 mg IV BID for seizure preventions. Continue for now. If able to tolerate oral intake restart home 750 mg daily. -will also give decadron given vasogenic edema to see if any improvement in swallowing, currently unable to swallow. -continue speech therapy. 2. Found down - possible seizure given history, or falls in the setting of worsening glioblastoma. - keppra as above 3. Atrial fibrillation with rapid ventricular response, unknown type - try to control rate for now, for now will keep comfort measures. Give minimal treatments with comfort in mind. - eliquis on hold given concern for intracranial hemorrhage. 4. Elevated troponin - may be in setting of possible seizure, will continue to follow for now given unclear goals of care. Peak 0.045. Please note it appears patient's name was shifted and some of her admission labs are not in the chart. Given goals of care no further evaluation necessary. 5. Rhabdomyolysis, acute, present on admission - continue IV fluids for now given rhabdomyolysis, if discharged home or unable to swallow tomorrow consider stopping treatment. 6. Leukocytosis, - suspect secondary to dehydration, maybe with aspiration pneumonia, may be from possible seizure. Continue to monitor for fever or signs of infection. No further labs necessary. Code: DNR, surrogate neighbor Hans and friend Eliane from [place], both DPOA. DVT: hold given active bleeding. Dispo: changed to inpatient, plan for discharge home on hospice. Timing in the next few days, likely 2. Will see if she is able to eat with continued steroids. Time Spent With Patient Critical Care time: I spent a total of [] minutes of critical care time on this patient's care today; this time is exclusive of procedural time.
--- NOTE | 2021-04-18 12:50 | CM.DPC ---
Addendum entered by Berenice Gonzales R.N. 04/18/21 15:30: Asked friend, Eliane, to bring in her POLST form so this can go with her on BLS transport. Will ask Guera to set up tomorrow, form is completed and signed by Dr. Jones Original Note: DCP Cont: Spoke to Wendy, in referrals for [facility] . She had spoken to Elaine BRASHER. The plan is to have her equipment delivered tomorrow in the morning, and hospice to open between [id number]. Eliane is aware, and has been setting up caregivers with Mandy tomorrow. Mentioned transportation, as it is noted that patient will need BLS transport. She is aware that there can be expense for this, but this is the only option to get her home. She has not been weight bearing, and not deemed appropriate for therapy. P: DCP to continue to follow. Patient will need to be discharged home tomorrow. [facility] patient tomorrow between [id number], and equipment is to be delivered in the am. She will need to go BLS. Berenice Gonzales RN/Computerized Mill Recorder
[2021-04-19] VITALS (9 sets, daily range): BP systolic 163–185; BP diastolic 74–109; PULSE 53–68; RESP 16–18; TEMP 36.4–36.7; O2SAT 95–98
[2021-04-19] MEDS: DEXAMETHASONE 4 MG/ML VIAL IV (00:48)
[2021-04-19] MEDS: SODIUM CHLORIDE 0.9% 1,000 ML 75 ML IV (06:07)
[2021-04-19] MEDS: levETIRAcetam 500 MG in SODIUM CHLORIDE 0.9% 100 ML 420 ML IV (07:34)
--- NOTE | 2021-04-19 08:14 | PC.NURSE ---
Dr. Jones notified regarding patient's blood pressure. Most recent was 174/109, pulse of 55. Orders received.
[2021-04-19] MEDS: lisinopriL 10 MG TABLET PO (08:23)
--- NOTE | 2021-04-19 08:23 | CM.DPNOTE ---
Called [facility] per Kaylie and spoke to Adriana Aviles for BLS transport for [address] to patient's address. She said they need a Polst and I communicated this to Kaylie. Guera Glass CM Asst.
--- NOTE | 2021-04-19 09:16 | P.DS_ITS ---
History of Present Illness History of Present Illness Chief complaint: GLF Narrative: Per Dr. Haas: This is a 75-year-old female with a past history of glioblastoma who was brought into the emergency room by her neighbor after being found down.? Patient is alert but confused, does not remember what happened.? No further history is available at this time.? After extensive chart review it does appear that the patient has a history of a craniotomy, and has prior images noting a left frontal temporal mass that has been worsening.? She was also in the emergency room and sent to [facility] with this mass and subsequent bleeding at that time.? It is unknown what occurred at [facility] or what has transpired since then. Review electronic pharmacy records do show that the patient has been taking famotidine, Keppra, Ativan, metoprolol, olanzapine. In the emergency room, the patient was complaining of hip pain which is great chronic for her.? Initial laboratory evaluation revealed a mild leukocytosis w ith WBC 14.9, elevated hemoglobin at 17.8, but the remainder of her labs were fairly unremarkable.? Her lactate was mildly elevated at 2.5.? She also has a mild transaminitis.? CK level was 1112, troponin was mildly elevated at 0.045.? ProBNP was 1410.? Procalcitonin was within normal limits at 0.15.? Urinalysis showed no evidence of infection.? COVID-19 testing was negative.? X-ray of her hip showed a possible right femoral hypodensity, which could be related to malignancy.? Chest x-ray was read as unremarkable but has low lung volumes, and with my read there appears to be some blurring of her right hemidiaphragm.? CT scan of her head showed a left frontal temporal mass, with 5 mm of midline shift and a scalp hematoma.? CT of her C-spine showed no acute fractures.? In the emergency room, ER provider had discussion with DPOA who was the patient's neighbor and friend visiting from [place].? They left from the emergency room, but stated that the patient should be made comfortable with pursual of hospice.? Patient was admitted under observation. Discharge Providers Provider Date of admission: 04/16/21 16:00 Discharge Date: 04/19/21 Primary care physician: Parris Frye MD Consults: 04/16/21 16:52 Consult to Occupational Therapy Evaluate & Treat Comment: Physician Instructions: Evaluate and treat Consult to Physical Therapy Evaluate & Treat Comment: Physician Instructions: Evaluate and Treat 04/16/21 16:53 Consult to Hospice Referral Routine Comment: 04/17/21 08:53 Consult to Speech Therapy Evaluate & Treat Comment: Physician Instructions: Evaluate and treat Discharge provider: Johnnie Jones MD Summary Hospital Course Discharge Diagnosis: 1. Acute glioblastoma with incranial edema and acute hemorrhage 2. Atrial fibrillation with RVR 3. Cardiac demand ischemia 4. Rhabdomyolysis Hospital Course: Ms. Sylvia Bennett presented to the hospital after being found down. She has a known worsening glioblastoma prior to this admission. CT head was done which showed a worsening mass, midline shift, edema, and probable acute hemorrhage. She was given decadron for the vasogenic edema, she was given keppra for the seizure history. Her eliquis was held. After discussion with patient and dPOA decision was made to discharge home with hospice. She had a swallow evaluation done and was able to swallow, which she wanted done for comfort. Exam Vital Signs (past 8 hours): Oxygen Delivery Method Room Air Oxygen Flow Rate 0 Narrative Exam Narrative: GENERAL APPEARANCE: chronically ill-appearing female in no acute distress HEENT:? R posterior scalp elevation, corresponds to hematoma seen on CT imaging, extraocular muscles are intact, oropharynx is clear and mucous membranes are moist, neck is supple without adenopathy.? LUNGS: Auscultation of the lungs revealed diminished breath sounds at bilateral lung bases, no obvious wheezing, rhonchi, or rales. CARDIOVASCULAR:? Tachycardic and irregularly irregular rhythm, no murmurs. ABDOMEN: Soft, nondistended, and nontender. MUSCULOSKELETAL: significant L hip tenderness, no joint effusions noted.? Muscle strength was diminished in bilateral lower extremities. EXTREMITIES: No cyanosis, clubbing.? There is bilateral nonpitting edema in her lower extremities. NEUROLOGIC:? Alert, not orientedresponses are nonsensical and difficult to understand.? Intermittently follows commands. Objective Labs Result Diagrams: 04/16/21 11:50 04/16/21 11:50 [facility] Medical History (Updated 04/16/21 @ 18:16 by Matti Haas DO) Atrial fibrillation Glioblastoma Surgical History H/O craniotomy Social History (System 01/03/21 @ 07:59 by Sharron Vazquez) household members: none Smoking Status: Former smoker Discharge Plan Discharge Plan Patient Disposition: Hospice - Home Provider Discharge Comment: Ms. Sylvia Bennett came in to the hospital after being found down. She has a known glioblastoma and she had swelling and concern for bleeding in the brain. After discussion with her and her POA, hospice and home was the decision. She will be given medications for comfort including dexamethasone to help reduce swelling, pain meds, and keppra for seizures. She did have some swallowing difficulty, so she may not be able to take these consistently. She will be discharged with hospice. Discharge orders & Medications Prescriptions: New metoprolol succinate 50 mg Tablet Extended Release 24 Hr 50 mg PO BID Qty: 30 RF: 0 ondansetron 4 mg Tablet,Disintegrating 4 mg PO Q8HR PRN (Reason: Nausea And Vomiting) Qty: 20 RF: 0 oxycodone 5 mg Tablet 5 mg PO Q6HR PRN (Reason: Pain, Moderate (4-6)) Qty: 10 RF: 0 dexamethasone 4 mg tablet 4 mg PO DAILY Qty: 30 RF: 0 Continued olanzapine 2.5 mg tablet 2.5 mg PO TID RF: 0 famotidine 20 mg tablet 20 mg PO BID RF: 0 levetiracetam 750 mg tablet extended release 24 hr 750 mg PO DAILY RF: 0 Discontinued metoprolol succinate 100 mg tablet extended release 24 hr 100 mg PO DAILY RF: 0 Eliquis 5 mg tablet 5 mg PO BID RF: 0 Follow up/Referrals: Parris Frye MD [Primary Care Provider] - Diet/Activity/Treatments Diet: Diet as Tolerated Discharge Data Primary Care Provider: Parris Frye [facility] [place] The patient has current or prior documentation of left ventricular ejection fraction (LVEF) less than 40%, or moderate or severely depressed left ventricular systolic function.: No
--- NOTE | 2021-04-19 10:38 | CM.DPC ---
DCP Discharge Hospice Per MD, pt is medically stable to d/c home today with Hospice to start and agreeable to writing couple day Rx for meds to be sent to [facility] as Hospice states they may not be able to get meds today for pt. ARMIN called [facility] and confirmed with Yanni that pt will d/c via BLS today around 1300 to be home in time for [id number] intake with wire preparation machine tender and equipment to be delivered today by 1230. ARMIN called pt's SASCHA Del Rio and confirmed above information and she states she can fax pt's POLST form for [facility] showing limited interventions. VINNIE Guera kindly called [facility] and scheduled stretcher transport for 1300. BLS form on chart and scanned into EMR. ARMIN updated lime boiler, BEEF BREAKER, RN, and MD. Plan: Patient to d/c home today via [facility] at 1300 with supportive friend/SASCHA Hutchison and [facility] to open around 1400. TERENCE Chamberlain
--- NOTE | 2021-04-19 12:34 | ST.IPDYTX ---
Visit Care Team Role Provider Type Parris Frye MD Primary Care Provider Physician Specialty: Internal Medicine Address: [address] [place] [address], [id number] Email: [email or web address] Madeleine Rutherford DO Emergency Provider Physician Referring Provider Specialty: Emergency Medicine Address: [address] [place] [address], [id number] Email: [email or web address] Haas DO Admit Provider Physician Attending Provider Specialty: Internal Medicine Address: [address] [place] [address], [id number] Email: [email or web address] Dysphagia Treatment PIPE WASHER Dysphagia Treatment Start: 04/19/21 12:20 Freq: Status: Active Protocol: Document 04/19/21 12:21 LNK (Rec: 04/19/21 12:34 LNK [id number]) Dysphagia Treatment Session Time Visit Start Time 10:40 Visit Stop Time 10:55 Total Visit Minutes 15 Setting Assessment Location Acute Care Visit Type Note Type Treatment Note Patient Information Identification Type Name,Date of Subjective Observations Pt in her bed upright. Nursing reported that the pt ate all breakfast without Treatment Treatment Activities difficulty. Pt refused PO trials x2. Communication board at bedside. Brought it to pt's attention. She said yes when asked would this help. pt was turning the pages looking at the pictures. Not sure if she understood how to use it. Could not find specific pictures (i.e., the clock face , the toilet, yes/no, etc.) She did ask for her glasses x2 to see things. After a few minutes, the pt began talking about a friend she has known since high school who is staying at pt's home. She continued describing events she experienced with this friend. Unsure of the accuracy as no family was in attendance. Pt's speech was more intelligible that previous reports. This PIPE WASHER was able to understand some sentences. Assessment Patient Response to Treatment Fair Assessment of Improvement Pt's speech/language seems to be improving re: intelligibility. pt continues to demonstrate confusion and jargon speech when attempting to communicate. Pt is scheduled to be discharged today on Hospice. Diet Recommendations Recommendations Continue Current Diet Aspiration Precautions Additional Precautions Assisted feeding when alert only. Treatment Plan Placement Recommendation after Discharge Home with Hospice Appropriate for Continued Therapy No
[2021-04-19] MEDS: OXYCODONE IR 5 MG TABLET PO (12:36)
[2021-04-19 12:58] LABS: COVID19 - ADMIT (NP swab/PCR) Negative (Negative)
--- NOTE | 2021-04-19 13:17 | CM.DANOTE ---
Patient discharged home on hospice. Transported by EMS to home. EMS personnel given report and discharge paperwork. Denied any further questions.
== END 2021-04-19 13:00 | disposition hospice, home (50) | DRG 64 ==
LOC: ED 15:31 → AC 16:30
PROVIDERS: Internal Medicine; Admitting Provider Internal Medicine; Emergency Provider Emergency Medicine; PCP Internal Medicine; Referring Provider Emergency Medicine; Visit Provider Internal Medicine
DX: I61.9 Nontraumatic intracerebral hemorrhage, unspecified (principal); G93.6 Cerebral edema; C71.9 Malignant neoplasm of brain, unspecified; M62.82 Rhabdomyolysis; R47.1 Dysarthria and anarthria; Z51.5 Encounter for palliative care; I48.91 Unspecified atrial fibrillation; I25.9 Chronic ischemic heart disease, unspecified; R56.9 Unspecified convulsions; Z79.01 Long term (current) use of anticoagulants; Z87.891 Personal history of nicotine dependence; Z20.822 Contact with and (suspected) exposure to COVID-19
CPT/HCPCS: 36415; 70450; 71045; 72125; 73502; 80053; 81001; 82550; 82553; 83605; 83880; 84145; 84484; 85025; 85610; 85730; 87040; 87635; 92526; 92610; 93005; 94760; 96361; 96374; 96375; 99284; C9803; J1100; J1170; J1953